=== PATIENT | male | born 1950 | race Caucasian/White ===

== ENCOUNTER 2018-05-30 15:30 | Inpatient (IN) | payer MEDICARE ==
[~2018-05-30] VITALS: Ht 175.3 cm; Wt 82.7 kg
[~2018-05-30 15:30] MED LIST: ATOR20TA38 PO; BRIV100T PO; CLOB10TA PO; CLOB20TA PO; DEXA2TAB PO; DOCU-216 PO; HYDR-4011 PO; IBUP200C11 PO; LACO200T2 PO; LORA1TAB PO; MEMA10TA PO; METO-335 PO; ONDA8TAB83 PO; POLY17PO6 PO; RANI150T5 PO; TEMO100C13 PO
[2018-05-30 16:58] VITALS: BP 106/71; PULSE 60; RESP 18
[2018-05-30] MEDS ORDERED: ACETAMINOPHEN 325 MG TAB PO PRN ×3 (18:27→19:56)
[2018-05-30] MEDS ORDERED: HYDROCODONE/APAP (5/325) TAB PO PRN ×3 (18:30→19:56)
[2018-05-30] MEDS ORDERED: POLYETHYLENE GLYCOL 17 GM PACKET PO PRN ×2 (18:30→19:56)
[2018-05-30] MEDS ORDERED: ZOLPIDEM 5 MG TAB PO PRN ×2 (18:30→19:56)
[2018-05-30] MEDS ORDERED: IBUPROFEN 200 MG TAB PO PRN ×2 (18:30→19:56)
[2018-05-30] MEDS ORDERED: LORAZEPAM 0.5 MG TAB PO PRN (18:30)
[2018-05-30 18:31] VITALS: Ht 175.3 cm; Wt 82.7 kg
[2018-05-30] MEDS ORDERED: MEMANTINE 10 MG TAB PO SCH (19:56)
[2018-05-30] MEDS ORDERED: DEXAMETHASONE 2 MG TAB PO SCH (19:56)
[2018-05-30] MEDS ORDERED: PENDING SANTYL ORDER FOR WOUND CARE XX PRN (19:56)
[2018-05-30] MEDS ORDERED: ASPIRIN 81 MG TAB PO SCH (19:56)
[2018-05-30] MEDS ORDERED: METOPROLOL (XL) 25 MG TAB PO SCH (19:56)
[2018-05-30] MEDS ORDERED: ATORVASTATIN 20 MG TAB PO SCH (19:56)
[2018-05-30] MEDS ORDERED: RANITIDINE 150 MG TAB PO SCH (19:56)
[2018-05-30] MEDS ORDERED: ONDANSETRON 4 MG INJ IV PRN (19:56)
[2018-05-30] MEDS ORDERED: DOCUSATE SODIUM 100 MG CAP PO SCH (19:56)
[2018-05-30] MEDS ORDERED: LORAZEPAM 2 MG INJ IV PRN (19:56)
[2018-05-30 20:00] VITALS: BP 101/67; PULSE 84; RESP 18
[2018-05-30] MEDS: MEMANTINE 10 MG TAB PO SCH (21:59)
[2018-05-30] MEDS: RANITIDINE 150 MG TAB PO SCH (22:00)
[2018-05-30] MEDS: DOCUSATE SODIUM 100 MG CAP PO SCH (22:00)
[2018-05-30] MEDS: ATORVASTATIN 20 MG TAB PO SCH (22:00)
[2018-05-30] MEDS: BRIVIACT 100 MG PO SCH (22:40)
[2018-05-30] MEDS: CLOBAZAM 20 MG PO SCH (22:41)
[2018-05-30] MEDS: LACOSAMIDE 200 MG PO SCH (22:41)
[2018-05-31 01:58] VITALS: BP 117/81; PULSE 70; RESP 18
--- NOTE | 2018-05-31 05:56 | NUR ---
REPORT RECEIVED FROM ALYX STEPHENSON. PATIENT IS ALERT AND ORIENTED X 2. SPEECH IS SLURRED. FACIAL DROOP, RT SIDED WEAKNESS. FALL. AND ASPIRATION, SEIZURE PRECAUTION. REFUSED PADDED RAILS. NO C/O PAIN OR DISCOMFORT. RECREATIONAL ACTIVITIES PROVIDED TO PATIENT; TV, CALL LIGHT WITHIN REACH Addendum: 05/31/18 at 1228 by ALYX DILLARD RN Per of pt, pt's own meds: Briviatt, Clobazam and Vimpat are deposited in Pharmacy.
[2018-05-31 07:30] VITALS: BP 112/75; PULSE 76; RESP 18
[2018-05-31] MEDS: DOCUSATE SODIUM 100 MG CAP PO SCH (09:00)
[2018-05-31] MEDS: METOPROLOL (XL) 25 MG TAB PO SCH (09:00)
[2018-05-31] MEDS: ASPIRIN 81 MG TAB PO SCH (10:06)
[2018-05-31] MEDS: MEMANTINE 10 MG TAB PO SCH ×2 (10:07→21:53)
[2018-05-31] MEDS: DEXAMETHASONE 2 MG TAB PO SCH (10:07)
[2018-05-31] MEDS: BRIVIACT 100 MG PO SCH ×2 (10:09→21:56)
[2018-05-31] MEDS: LACOSAMIDE 200 MG PO SCH ×2 (10:09→21:56)
[2018-05-31] MEDS: CLOBAZAM 10 MG PO SCH (10:10)
[2018-05-31 14:00] VITALS: BP 116/73; PULSE 77; RESP 18
--- NOTE | 2018-05-31 14:00 | CONS ---
DATE OF ADMISSION: 05/30/2018 DATE OF CONSULTATION: 05/31/2018 TYPE OF CONSULTATION: Rehabilitation post-admission physician evaluation. 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 ACTIVE COMORBIDITIES: 1. Dysphagia. 2. History of brain tumor with anaplastic astrocytoma. 3. Hypertension. 4. Hyperlipidemia. 5. Gastroesophageal reflux disease. 6. Seizure disorder. 7. PFO 8. Impairments in self-care, mobility and cognition. HISTORY OF PRESENT ILLNESS: The patient is a 67-year-old gentleman with a history of multiple medical comorbidities including brain tumor, seizure disorder, hypertension, who was admitted with notable right-sided weakness and altered level of consciousness. The patient apparently had been visiting his oncologist Dr. Deshawn Briseno and was receiving workup when noted to have worsening weakness and confusion. In presentation to the emergency room, code stroke was initiated and the patient scored a 2 on the NIH stroke scale. MRI of the brain did demonstrate left parietal cortical infarct in addition to chronic left basal ganglia infarct along with left-sided parietal lesion suggestive of metastatic disease and postsurgical changes. The patient's hospital course has been notable for seizure activity, new finding of small PFO. The patient has now been cleared to transfer to the rehabilitation unit for comprehensive interdisciplinary rehab care. FUNCTIONAL HISTORY: Prior to recent events, the patient was independent in self-care tasks and mobility. Currently, the patient requires maximal assist for self-care and mobility tasks. The patient does seem more impaired than the preadmission screen. FAMILY AND SOCIAL HISTORY: The patient lives with family very supportive who hopes to have him return home upon discharge. PAST MEDICAL HISTORY: 1. Brain tumor with anaplastic astrocytoma. 2. Hypertension. 3. Hyperlipidemia. 4. Gastroesophageal reflux disease. 5. Patent foramen ovale. 6. Seizure disorder. 7. Anxiety. CURRENT MEDICATIONS: 1. Aspirin 81 mg p.o. daily. 2. Decadron 2 mg p.o. daily. 3. Colace 100 mg p.o. q.12. 4. Ferriday p.r.n. 5. Namenda 10 mg b.i.d. 6. Toprol-XL 12.5 mg p.o. daily. 7. ____ 1 b.i.d. 8. Clobazam 1 p.o. q.a.m. 9. Vimpat 1 p.o. b.i.d. 10. [place] mays ALLERGIES: THE PATIENT WITH NO KNOWN DRUG ALLERGIES. PHYSICAL EXAMINATION: VITAL SIGNS: Currently afebrile with stable vital signs. GENERAL: The patient is quite somnolent, but will follow one-step commands with tactile initiation. LUNGS: Clear. CARDIAC: S1, S2. ABDOMEN: Soft, nontender, positive bowel sounds. NEUROLOGIC: The patient does demonstrate it technician strength in the left upper extremity and is able to demonstrate withdrawal response on the left lower extremity. The patient is with flaccid right upper extremity. PLAN: The patient has been admitted for comprehensive interdisciplinary acute rehab with the goal of having the patient tolerate 3 hours of daily therapy in divided doses for at least 5/7 days a week. The treatment plan will include: 1. Physical therapy to focus on bed mobility, transfers, wheelchair mobility and family training with the goal of having patient return home with family. 2. Occupational therapy to focus on hygiene, grooming, dressing, bathing and toileting activities with the goal of having the patient reach a min assist level and family safely trained in assistance. 3. Neuropsychological evaluation for full cognitive assessment and oversight of cognitive training and family education. 4. Speech therapy for full cognitive assessment. 5. Rehabilitation nursing for carryover of therapeutic interventions, the goal of continent of bowel and bladder and the patient and family education with regard to the aforementioned issues. REHABILITATION BARRIER: Cognition. INTERVENTION FOR BARRIER: Neuropsychological evaluation in addition to speech therapy. ESTIMATED LENGTH OF STAY: If patient is able to tolerate a full course of rehabilitation program, anticipated length of stay is 14 days. DISPOSITION GOAL: Home with family. I acknowledge that I performed a full physical examination on this patient within 24 hours of admission to the rehabilitation unit. I believe the patient is a candidate for rehabilitation trial and is anticipated to make reasonable goals in a reasonable period of time as outlined above. Dictated By: SIA SHARPE/FROY Conf#: [id number] DID#: [id number] CC: RAMA LONG MD;*EndCC* MTDD
--- NOTE | 2018-05-31 15:15 | NUR ---
PT ANSON Pt is a 67 y/o, male, with history of brain tumor w/ anaplastic astrocytoma, seizure disorder, hypertension, hyperlipidemia, GERD, anxiety, who was admitted with right-sided weakness and altered level of consciousness. Per , they were at [facility] for a check up when she noticed weakness and R facial drooping. Code stroke was initiated. MRI of the brain showed left parietal cortical infarct in addition to chronic left basal ganglia infarct along with left-sided parietal lesion suggestive of metastatic disease and postsurgical changes. Hospital course has been notable for seizure activity, new finding of small PFO. Pt and agreeable to PT eval, safe to proceed per RN. Pt and edu. on role of PT, POC, goals and safety. Good understanding noted from . Pt will benefit from further education. PLOF: Lives with in a 1-story house with ramp entry. Pt was able to ambulate on his own inside their home and was able to go up and down the ramp to get their mail w/o the use of any device. Pt owns a manual w/c, FWW, 4WW, trekking pole. CLOF: See PT tech record. Precautions: aphasic, speak slow and loud, fall risk, R-sided weakness, 2pA for gait, h/o seizure Short-term Goals: SBA bed mobility CGA with transfers Min A gait with least restrictive device x 75 ft SBA w/c mobility x 75 ft Long-term Goasl: Modified indep. bed mobility Supervised with transfers SBA gait with least restrictive device x 150 ft Modified indep. w/c mobility x 150 ft. Progress toward goals with POC.
--- NOTE | 2018-05-31 15:20 | HP ---
Date/Time of Note Date/Time of Note DATE: 05/31/18 TIME: 15:20 Assessment/Plan VTE Prophylaxis Risk score (from Ns)>0 risk: 5 SCD applied (from Ns): No SCD contraindicated: other Pharmacological prophylaxis: other Assessment/Plan Hospital Course Objective Physical exam General: Patient is laying in bed and answers questions appropriately Mentation: Patient is alert and oriented 4, Head: Normocephalic atraumatic Eyes: EOMI, pupils reactive to light Neck: Supple, nontender, midline Respiratory: Clear to auscultation bilaterally Cardiovascular: regular rate, no obvious murmurs Gastrointestinal: non-tender to palpation, bowel sounds heard. 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, chronic left basal ganglia lacunar infarct -Full workup done -In rehab -Residual right upper extremity and right facial droop is the main insult, will be working with physical therapy, occupational therapy, speech therapy Anaplastic astrocytoma -On chemotherapy -Follow-up at [facility] -Follow-up with neuro oncologist after rehab Hypertension -Manage as needed Seizures -Continue home meds Dyslipidemia -Continue meds History of dementia -Continue home meds GERD -Continue home meds New finding of small PFO on LAKSHMI -Need surgical repair, family and knows to follow-up at [facility] after discharge. Result Diagram: 05/31/18 0702 05/31/18 0702 Results 24hrs Laboratory Tests Test 05/30/18 20:30 05/31/18 07:02 Urine Color YELLOW Urine Clarity CLEAR Urine pH 7.0 Urine Specific [place] 1.010 Urine Ketones NEGATIVE Urine Nitrite NEGATIVE Urine Bilirubin NEGATIVE Urine Urobilinogen NEGATIVE Urine Leukocyte Esterase NEGATIVE Urine Microscopic RBC 15 H Urine Microscopic WBC 1 Urine Hemoglobin 1+ H Urine Glucose NEGATIVE Urine Total Protein NEGATIVE White Blood Count 5.6 Red Blood Count 4.84 Hemoglobin 15.7 Hematocrit 43.7 Mean Corpuscular Volume 90.3 Mean Corpuscular Hemoglobin 32.4 Mean Corpuscular Hemoglobin Concent 35.9 Red Cell Distribution Width 13.4 Platelet Count 141 Mean Platelet Volume 8.6 Immature Granulocytes % 1.800 H Neutrophils % 68.5 Lymphocytes % 10.9 L Monocytes % 11.2 H Eosinophils % 6.4 Basophils % 1.2 Nucleated Red Blood Cells % 0.0 Immature Granulocytes # 0.100 H Neutrophils # 3.9 Lymphocytes # 0.6 L Monocytes # 0.6 Eosinophils # 0.4 Basophils # 0.1 Nucleated Red Blood Cells # 0.0 Sodium Level 143 Potassium Level 3.7 Chloride Level 104 Carbon Dioxide Level 30 Anion Gap 9 Blood Urea Nitrogen 16 Creatinine 0.73 Est Glomerular Filtrat Rate mL/min > 60 Glucose Level 96 Calcium Level 9.2 Total Bilirubin 0.9 Direct Bilirubin 0.00 Indirect Bilirubin 0.9 Aspartate Amino Transf (AST/SGOT) 15 Alanine Aminotransferase (ALT/SGPT) 32 Alkaline Phosphatase 55 Total Protein 6.0 L Albumin 3.4 Globulin 2.60 Albumin/Globulin Ratio 1.30 HPI/ROS Admit Date/Time Admit Date/Time May 30, 2018 at 16:24 Hx of Present Illness Patient is a male with a past medical history significant for known b rain tumor on chemotherapy, hypertension, seizures due to brain tumor, dyslipidemia, mild dementia, GERD who presented to [facility] for strokelike symptoms. Patient was diagnosed with acute CVA and subsequently had a complete stroke workup in the inpatient setting. Patient was deemed safe for discharge and subsequently is now being admitted into the acute rehab unit. Patient overall is doing well, still having right cheek numbness as well as right facial droop and moderate right upper extremity dysfunction. Patient does have some right lower extremity dysfunction however it is not significantly different from his baseline per patient. Patient is doing well and denies any current abdominal pain, chest pain, shortness of breath, headache, leg pain. PMH/Family/Social Past Medical History Medications Current Medications Acetaminophen (Tylenol Tab) 650 mg Q6H PRN PO MILD PAIN(1-3)OR ELEVATED TEMP; Start 05/30/18 at 18:30 Aspirin (Aspirin) 81 mg DAILY PO Last administered on 05/31/18at 10:06; Admin Dose 81 MG; Start 05/31/18 at 09:00 Atorvastatin Calcium (Lipitor) 20 mg HS PO Last administered on 05/30/18at 22:00; Admin Dose 20 MG; Start 05/30/18 at 21:00 Dexamethasone (Decadron) 2 mg DAILY PO Last administered on 05/31/18at 10:07; Admin Dose 2 MG; Start 05/31/18 at 09:00 Acetaminophen/ Hydrocodone Bitart ([place] (5/325)) 1 tab Q6H PRN PO MODERATE PAIN LEVEL 4-6; Start 05/30/18 at 18:30 Ibuprofen (Motrin) 200 mg Q6H PRN PO MILD PAIN(1-3) OR TEMP>38C; Start 05/30/18 at 18:30 Lorazepam (Ativan) 0.5 mg QID PRN PO ANXIETY; Start 05/30/18 at 18:30 Memantine (Namenda) 10 mg BID PO Last administered on 05/31/18at 10:07; Admin Dose 10 MG; Start 05/30/18 at 21:00 Metoprolol Succinate (Toprol Xl) 12.5 mg DAILY PO ; Start 05/31/18 at 09:00 Miscellaneous Information (* Miscellaneous Pharmacy Order) 1 ea BID PO ; Start 05/30/18 at 21:00 Miscellaneous Information (* Miscellaneous Pharmacy Order) 1 ea DAILY PO ; Start 05/31/18 at 09:00 Miscellaneous Information (* Miscellaneous Pharmacy Order) 1 ea HS PO ; Start 05/30/18 at 21:00 Miscellaneous Information (* Miscellaneous Pharmacy Order) 1 ea BID PO ; Start 05/30/18 at 21:00 Polyethylene Glycol (Miralax) 17 gm DAILY PRN PO CONSTIPATION; Start 05/30/18 at 18:30 Ranitidine HCl (Zantac) 150 mg HS PO Last administered on 05/30/18at 22:00; Admin Dose 150 MG; Start 05/30/18 at 21:00 Zolpidem Tartrate (Ambien) 5 mg HS PRN PO INSOMNIA; Start 05/30/18 at 18:30 Patient Own Medication 1 ea BID PO Last administered on 05/31/18at 10:09; Admin Dose 1 EA; Start 05/30/18 at 19:56 Patient Own Medication 1 ea QAM PO Last administered on 05/31/18at 10:10; Admin Dose 1 EA; Start 05/30/18 at 19:56 Patient Own Medication 1 ea QPM PO Last administered on 05/30/18at 22:41; Admin Dose 1 EA; Start 05/30/18 at 19:56 Patient Own Medication 1 ea BID PO Last administered on 05/31/18at 10:09; Admin Dose 1 EA; Start 05/30/18 at 19:56 Ondansetron HCl (Zofran Inj) 4 mg Q6H PRN IV NAUSEA AND/OR VOMITING; Start 05/30/18 at 19:56 Miscellaneous Information (Pending Santyl Order For Wound Care) This patient ly... PRN PRN XX wound care; Start 05/30/18 at 19:56 Docusate Sodium (Colace Liquid Cup) 100 mg BID PO ; Start 05/31/18 at 21:00 Coded Allergies: No Known Allergy (Unverified , 05/25/18) Social History Smoking Status: Heavy tobacco smoker Exam/Review of Systems Vital Signs Vitals Vital Signs Date Temp Pulse Resp B/P (MAP) Pulse Ox O2 O2 Flow FiO2 Time Delivery Rate 05/31/18 97.6 77 18 116/73 93 Room Air 14:00 (87) Intake and Output 05/30/18 05/30/18 05/31/18 1515:00 23:00 07:00 IntakeIntake Total 220 ml OutputOutput Total 600 ml BalanceBalance -380 ml JESUS DAVIS May 31, 2018 15:20
--- NOTE | 2018-05-31 17:00 | NUR ---
Patient in bed eating dinner assisted by his . Offered TV & educational materials for recreational activities. Alert, oriented x 1 with periods of confusion. No SOB. Denies pain. No seizure episode noted. Patient & refused padded siderails. Offered 3x but refused 3x. Explained risks & benefits but they still refused. Kept clean & dry. All due meds given. Call light within reach. Bed alarm on & in low position. Kept comfortable.
--- NOTE | 2018-05-31 18:38 | CONS ---
DATE OF ADMISSION: 05/30/2018 DATE OF CONSULTATION: 05/31/2018 TYPE OF CONSULTATION: Psychological. REFERRING PHYSICIAN: Sia Carr MD CONSULTING PSYCHOLOGIST: Dashawn Thompson, PhD REASON FOR CONSULTATION: This consultation was requested by Dr. Carlin Carr in order to evaluate t he cognitive and emotional functioning of this patient related to his present medical condition. HISTORY OF PRESENT ILLNESS: The patient is a 67-year-old male. The patient has had numerous recent medical problems including what appeared to be 2 recent strokes. The patient also had been treated f or brain cancer for the last 2 years at [facility]. The patient reportedly has an a naplastic astrocytoma on the left side. The patient was brought into the emergency room. Eventually , he was then worked up and cleared. The patient was then sent to the acute rehabilitation unit for acute multidisciplinary rehabilitation. The patient is very frustrated. 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 The patient's was present with the patient's permission and did help the patient with some of the responses. The patient does under stand the questions, but did have an expressive aphasia. The reported that he has both expressi ve and receptive aphasia after his strokes. Recently, he has been getting better until this most rec ent event. FAMILY AND SOCIAL HISTORY: The patient lives in a home with his in [place], [place]. The patient eventually wants to return there after discharge. The patient's family lives up there. MEDICATIONS: The patient is currently not on any psychotropic medications. SUBSTANCE USE: The patient reports that he does not smoke. The patient reports that he does not dri nk or use other drugs. MENTAL STATUS EXAMINATION: APPEARANCE: The patient was seen in bed. He appears to be of average height and weight. The patien t is left-handed. The patient wears glasses. BEHAVIOR: The patient was cooperative during the consultation. The patient was very frustrated that he could not come up with some of the answers that he would like to. The patient did seem to unders tand the questions and was trying to answer them. MOOD AND AFFECT: The patient's mood appears to be depressed. Affect does appear to be slightly anxi ous. PERCEPTION: The patient reports no hallucinations or delusions. The patient was alert to person and place, but not exactly to situation and time. MEMORY AND COGNITION: The patient's memory and cognition appear to be impaired at the present time. It appears that this is related to his recent stroke. The patient could not name the hospital. The patient could not say who the President of [facility] is, even though he kind of knew it. The pa yris could not say the month or the year. The patient was able to say the city he lived in when pro mpted by his . Overall, it appears that the patient to be having a vascular dementia regarding h is recent stroke. INTELLIGENCE: Intelligence would appear to fall in the above average to superior range when he was f unctioning well. INSIGHT: Fair. JUDGMENT: Fair. THOUGHT CONTENT: The patient is very upset and concerned about his present medical condition. The p atient has numerous medical problems and before this has been very positive and "upbeat" about his pr ogress. The patient is now frustrated because a good number of the things that he has done to help h im rest has now deteriorated as a result of his recent stroke. DISCUSSION: The patient can likely benefit from some cognitive/behavioral psychotherapy while he is on the unit. This psychotherapy would focus on his underlying level of frustration about all his med ical problems. The patient could also benefit from some cognitive work that would be involved in try ing to get his memory and cognition back to a level that is commensurate with his previous abilities. The patient's was given a memory book to help him work with memories so that he could try and regain some cognitive functioning. DIAGNOSTIC IMPRESSION: 1. 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 2. F01.50, vascular dementia without behavioral disturbance. Thank you very much, Dr. Carlin Carr, for referring this individual. Please do not hesitate to radha crook if you have additional questions. Dictated By: DAHSAWN THOMPSON PHD RK/FROY Conf#: [id number] DID#: [id number] CC: SIA CARR MD; RAMA LONG MD;*EndCC*
[2018-05-31 19:19] VITALS: BP 105/71; PULSE 82; RESP 18
--- NOTE | 2018-05-31 20:13 | NUR ---
Called and spoke with [facility] pharmacist to send pt's own medications which is due at 2100 hours.
[2018-05-31] MEDS: ATORVASTATIN 20 MG TAB PO SCH (21:53)
[2018-05-31] MEDS: DOCUSATE SODIUM 10 MG/ML (10ML CUP) PO SCH (21:53)
[2018-05-31] MEDS: RANITIDINE 150 MG TAB PO SCH (21:53)
[2018-05-31] MEDS: CLOBAZAM 20 MG PO SCH (21:54)
[2018-06-01 02:00] VITALS: BP 116/77; RESP 18
[2018-06-01 07:00] VITALS: BP 107/71; PULSE 86; RESP 18
--- NOTE | 2018-06-01 08:03 | NUR ---
Pt is Alert and awake x 1 for name only, slept on and off during night hours, no other complaints noted. Vital signs stable. Right sided weakness. Slurred speech. Incontinent for bladder and bowel, cleaned and changed by staff last night. Pt kept on fall, seizure and aspiration precaution. Medication crushed and given with apple sauce. HOB elevated 90 degree while eating, drinking and giving medication. HOB elevated >30 degree all the times. Pt refused seizure pads. Bed alarm activated for safety, call light and bedside table within reach.
--- NOTE | 2018-06-01 10:34 | NUR ---
Wound Care Consult: Patient is a male with a past medical history significant for known brain tumor on chemotherapy, hypertension, seizures due to brain tumor, dyslipidemia, mild dementia, GERD who presented to [facility] for strokelike symptoms. Patient was diagnosed with acute CVA and subsequently had a complete stroke workup in the inpatient setting. Patient was deemed safe for discharge and subsequently is now being admitted into the acute rehab unit. Wound care consulted for wounds present on admission Multiple skin tears from right arm secondary to chemo medication use and aggravated by frequent falls. Treatment recommendation include, cleanse area with normal saline, pat dry, apply skin barrier dressing (non-stick Telfa) and cover with kerlix roll secured with tape daily and as needed. May change every 2-3 days as needed. Reposition patient every 2 hours per department protocol Elevate heels with pillows to off-load WOCN coordinated with Dacia, unit RN regarding assessment and treatment recommended. Juanjose Reyes RN MSN WOCN CM
[2018-06-01] MEDS: LACOSAMIDE 200 MG PO SCH ×2 (10:36→21:57)
[2018-06-01] MEDS: CLOBAZAM 10 MG PO SCH (10:36)
[2018-06-01] MEDS: BRIVIACT 100 MG PO SCH ×2 (10:37→21:58)
[2018-06-01] MEDS: ASPIRIN 81 MG TAB PO SCH (10:37)
[2018-06-01] MEDS: DOCUSATE SODIUM 10 MG/ML (10ML CUP) PO SCH ×2 (10:37→21:57)
[2018-06-01] MEDS: MEMANTINE 10 MG TAB PO SCH ×2 (10:37→21:57)
[2018-06-01] MEDS: METOPROLOL (XL) 25 MG TAB PO SCH (11:06)
--- NOTE | 2018-06-01 12:17 | PN ---
Date/Time of Note Date/Time of Note DATE: 06/01/18 TIME: 12:16 Subjective Much more alert today Objective Vital Signs Date Temp Pulse Resp B/P (MAP) Pulse Ox O2 O2 Flow FiO2 Time Delivery Rate 06/01/18 97.8 86 18 107/71 94 Room Air 07:00 (83) Intake and Output 05/31/18 05/31/18 06/01/18 1515:00 23:00 07:00 IntakeIntake Total 980 ml 150 ml OutputOutput Total 720 ml BalanceBalance 260 ml 150 ml Exam pulm-cta abd-soft max assist Results/Medications Result Diagram: 05/31/18 0702 05/31/18 0702 Medications Current Medications Acetaminophen (Tylenol Tab) 650 mg Q6H PRN PO MILD PAIN(1-3)OR ELEVATED TEMP; Start 05/30/18 at 18:30 Aspirin (Aspirin) 81 mg DAILY PO Last administered on 06/01/18at 10:37; Admin Dose 81 MG; Start 05/31/18 at 09:00 Atorvastatin Calcium (Lipitor) 20 mg HS PO Last administered on 05/31/18at 21:53; Admin Dose 20 MG; Start 05/30/18 at 21:00 Dexamethasone (Decadron) 2 mg DAILY PO Last administered on 05/31/18at 10:07; Admin Dose 2 MG; Start 05/31/18 at 09:00 Acetaminophen/ Hydrocodone Bitart ([place] (5/325)) 1 tab Q6H PRN PO MODERATE PAIN LEVEL 4-6; Start 05/30/18 at 18:30 Ibuprofen (Motrin) 200 mg Q6H PRN PO MILD PAIN(1-3) OR TEMP>38C; Start 05/30/18 at 18:30 Lorazepam (Ativan) 0.5 mg QID PRN PO ANXIETY; Start 05/30/18 at 18:30 Memantine (Namenda) 10 mg BID PO Last administered on 06/01/18at 10:37; Admin Dose 10 MG; Start 05/30/18 at 21:00 Metoprolol Succinate (Toprol Xl) 12.5 mg DAILY PO Last administered on 06/01/18at 11:06; Admin Dose 12.5 MG; Start 05/31/18 at 09:00 Miscellaneous Information (* Miscellaneous Pharmacy Order) 1 ea BID PO ; Start 05/30/18 at 21:00 Miscellaneous Information (* Miscellaneous Pharmacy Order) 1 ea DAILY PO ; S tart 05/31/18 at 09:00 Miscellaneous Information (* Miscellaneous Pharmacy Order) 1 ea HS PO ; Start 05/30/18 at 21:00 Miscellaneous Information (* Miscellaneous Pharmacy Order) 1 ea BID PO ; Start 05/30/18 at 21:00 Polyethylene Glycol (Miralax) 17 gm DAILY PRN PO CONSTIPATION Last administered on 05/31/18at 18:33; Admin Dose 17 GM; Start 05/30/18 at 18:30 Ranitidine HCl (Zantac) 150 mg HS PO Last administered on 05/31/18at 21:53; Admin Dose 150 MG; Start 05/30/18 at 21:00 Zolpidem Tartrate (Ambien) 5 mg HS PRN PO INSOMNIA; Start 05/30/18 at 18:30 Patient Own Medication 1 ea BID PO Last administered on 06/01/18at 10:37; Admin Dose 1 EA; Start 05/30/18 at 19:56 Patient Own Medication 1 ea QAM PO Last administered on 06/01/18at 10:36; Admin Dose 1 EA; Start 05/30/18 at 19:56 Patient Own Medication 1 ea QPM PO Last administered on 05/31/18at 21:54; Admin Dose 1 EA; Start 05/30/18 at 19:56 Patient Own Medication 1 ea BID PO Last administered on 06/01/18at 10:36; Admin Dose 1 EA; Start 05/30/18 at 19:56 Ondansetron HCl (Zofran Inj) 4 mg Q6H PRN IV NAUSEA AND/OR VOMITING; Start 05/30/18 at 19:56 Miscellaneous Information (Pending Santyl Order For Wound Care) This patient ly... 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 Continue rehab program Dysphagia-continue speech Hypertension. Hyperlipidemia. Gastroesophageal reflux disease. Seizure disorder. SIA SANTOS MD Jun 01, 2018 12:17
[2018-06-01 14:00] VITALS: BP 115/36; PULSE 70; RESP 18
--- NOTE | 2018-06-01 15:23 | PN ---
Date/Time of Note Date/Time of Note DATE: 06/01/18 TIME: 15:22 Objective Vitals Vital Signs Date Temp Pulse Resp B/P (MAP) Pulse Ox O2 O2 Flow FiO2 Time Delivery Rate 06/01/18 97.8 86 18 107/71 94 Room Air 07:00 (83) Intake and Output 05/31/18 05/31/18 06/01/18 1515:00 23:00 07:00 IntakeIntake Total 980 ml 150 ml OutputOutput Total 720 ml BalanceBalance 260 ml 150 ml Results Result Diagram: 05/31/1802 05/31/18 07 Medications Medications Current Medications Acetaminophen (Tylenol Tab) 650 mg Q6H PRN PO MILD PAIN(1-3)OR ELEVATED TEMP; Start 05/30/18 at 18:30 Aspirin (Aspirin) 81 mg DAILY PO Last administered on 06/01/18at 10:37; Admin Dose 81 MG; Start 05/31/18 at 09:00 Atorvastatin Calcium (Lipitor) 20 mg HS PO Last administered on 05/31/18at 21:53; Admin Dose 20 MG; Start 05/30/18 at 21:00 Dexamethasone (Decadron) 2 mg DAILY PO Last administered on 05/31/18at 10:07; Admin Dose 2 MG; Start 05/31/18 at 09:00 Acetaminophen/ Hydrocodone Bitart ([place] (5/325)) 1 tab Q6H PRN PO MODERATE PA IN LEVEL 4-6; Start 05/30/18 at 18:30 Ibuprofen (Motrin) 200 mg Q6H PRN PO MILD PAIN(1-3) OR TEMP>38C; Start 05/30/18 at 18:30 Lorazepam (Ativan) 0.5 mg QID PRN PO ANXIETY; Start 05/30/18 at 18:30 Memantine (Namenda) 10 mg BID PO Last administered on 06/01/18at 10:37; Admin Dose 10 MG; Start 05/30/18 at 21:00 Metoprolol Succinate (Toprol Xl) 12.5 mg DAILY PO Last administered on 06/01/18at 11:06; Admin Dose 12.5 MG; Start 05/31/18 at 09:00 Miscellaneous Information (* Miscellaneous Pharmacy Order) 1 ea BID PO ; Start 05/30/18 at 21:00 Miscellaneous Information (* Miscellaneous Pharmacy Order) 1 ea DAILY PO ; Start 05/31/18 at 09:00 Miscellaneous Information (* Miscellaneous Pharmacy Order) 1 ea HS PO ; Start 05/30/18 at 21:00 Miscellaneous Information (* Miscellaneous Pharmacy Order) 1 ea BID PO ; Start 05/30/18 at 21:00 Polyethylene Glycol (Miralax) 17 gm DAILY PRN PO CONSTIPATION Last administered on 05/31/18at 18:33; Admin Dose 17 GM; Start 05/30/18 at 18:30 Ranitidine HCl (Zantac) 150 mg HS PO Last administered on 05/31/18at 21:53; Admin Dose 150 MG; Start 05/30/18 at 21:00 Zolpidem Tartrate (Ambien) 5 mg HS PRN PO INSOMNIA; Start 05/30/18 at 18:30 Patient Own Medication 1 ea BID PO Last administered on 06/01/18at 10:37; Admin Dose 1 EA; Start 05/30/18 at 19:56 Patient Own Medication 1 ea QAM PO Last administered on 06/01/18at 10:36; Admin Dose 1 EA; Start 05/30/18 at 19:56 Patient Own Medication 1 ea QPM PO Last administered on 05/31/18at 21:54; Admin Dose 1 EA; Start 05/30/18 at 19:56 Patient Own Medication 1 ea BID PO Last administered on 06/01/18at 10:36; Admin Dose 1 EA; Start 05/30/18 at 19:56 Ondansetron HCl (Zofran Inj) 4 mg Q6H PRN IV NAUSEA AND/OR VOMITING; Start 05/30/18 at 19:56 Miscellaneous Information (Pending Santyl Order For Wound Care) This patient ly... PRN PRN XX wound care; Start 05/30/18 at 19:56 Docusate Sodium (Colace Liquid Cup) 100 mg BID PO Last administered on 06/01/18at 10:37; Admin Dose 100 MG; Start 05/31/18 at 21:00 VTE Prophylaxis Risk score (from Nsg)>0 risk: 5 SCD applied (from Nsg): Yes Lines/Catheters IV Catheter Type: Vidales in Place: No Assessment/Plan Hospital Course subjective no acute issues overnight Objective Physical exam General: Patient is laying in bed and answers questions appropriately Mentation: Patient is alert and oriented 4, Head: Normocephalic atraumatic Eyes: EOMI, pupils reactive to light Neck: Supple, nontender, midline Respiratory: Clear to auscultation bilaterally Cardiovascular: regular rate, no obvious murmurs Gastrointestinal: non-tender to palpation, bowel sounds heard. 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 after discharge. JESUS DAVIS Jun 01, 2018 15:23
[2018-06-01] MEDS: DEXAMETHASONE 2 MG TAB PO SCH (16:43)
--- NOTE | 2018-06-01 16:48 | CONS ---
Assessment/Plan Assessment/Plan Hospital Course 67 yo M with Hx of brain tumor NOS, s/p radiation therapy and c/b epilepsy who presents to [facility] for acute rehab... following a recent hospitalization for acute limb weakness. MRI confirmed an enhancing and diffusion restricting lesion in the R parietal lobe, concerning for stroke vs. tumor recurrence.. MRA H/N was without evidence of multifocal stenoses.. Echos were unrevealing. P: Cont ASA/Lipitor daily for secondary stroke prevention PT/OT/ST per thread marker Recommend repeat MRI brain in ~1 mo for further characterization Will follow clinically. Result Diagram: 05/31/18 0702 05/31/18 0702 Consultation Date/Type/Reason Admit Date/Time May 30, 2018 at 16:24 Type of Consult Neurology Requesting Provider: RAMA LONG MD, [facility] Date/Time of Note DATE: 06/01/18 TIME: 16:48 24 HR Interval Summary Free Text/Dictation Continues [facility]. No acute events or changes in pt condition reported. Exam Vital Signs Vitals Vital Signs Date Temp Pulse Resp B/P (MAP) Pulse Ox O2 O2 Flow FiO2 Time Delivery Rate 06/01/18 97.4 70 18 115/36 92 Room Air 14:00 (62) Intake and Output 05/31/18 05/31/18 06/01/18 1515:00 23:00 07:00 IntakeIntake Total 980 ml 150 ml OutputOutput Total 720 ml BalanceBalance 260 ml 150 ml Exam PE: Gen Appearance: No Apparent Distress HEENT: Normocephalic Cardiovascular: Regular rate Lungs: Clear bilaterally Abdomen: Soft Extremities: Dry NE: The patient was asleep though arousable to voice/light touch. Speech was sl ightly dysarthric and dysphasic. Fund of knowledge was adequate. Did not want to fully participate today. Pupils were equal and reactive to light. There was no afferent pupillary defect. Visual brock were normal. Funduscopic examination was limited. Extra-ocular movements were full. Ptosis was absent. There was no nystagmus. Facial sensation was diminished on the R. Face was asymmetric on the R with diminished activation on the R. Hearing was intact. Palate movements were normal. Neck strength was normal. There was normal tongue bulk and speed of movement. Tone was normal. Muscle bulk was normal. I did not see fasciculations. L arm was strong to confrontation, R arm was antigravity. LLE was strong to confrontation and RLE was mildly weak. Vibration sensation and sensation to light touch was diminished on the R vs L. Temperature and pinprick sensation was normal. Rapid alternating movements were normal. There was no dysmetria. There was no intention tremor. Gait was deferred due to bedrest. Arm and leg reflexes were 2+ and symmetric. Cerda's sign was absent. Plantar responses were flexor. LAUREN YOUNG NP Jun 01, 2018 16:48 LEONEL ANDERSON Jun 02, 2018 06:14
[2018-06-01 19:26] VITALS: BP 90/57; PULSE 72; RESP 18
[2018-06-01] MEDS: RANITIDINE 150 MG TAB PO SCH (21:57)
[2018-06-01] MEDS: ATORVASTATIN 20 MG TAB PO SCH (21:57)
[2018-06-01] MEDS: CLOBAZAM 20 MG PO SCH (21:58)
--- NOTE | 2018-06-02 05:25 | NUR ---
Pt stable with no acute distress noted. Due medications given and all needs attended. No ocmplaints of any pain/discomfort. Pt on strict aspiration precaution, meds was crushed and given with apple sauce. Pt continent vs incontinent, no BM noted. Safety measures in place. Hourly rounding made. Bed alarm activated for safety. bed side rails up and call light within pt's reach.
[2018-06-02 07:00] VITALS: BP 108/72; PULSE 74; RESP 16
[2018-06-02] MEDS: METOPROLOL (XL) 25 MG TAB PO SCH (09:00)
[2018-06-02] MEDS ORDERED: BISACODYL 10 MG SUPP PR PRN (10:00)
[2018-06-02] MEDS ORDERED: LACTULOSE 30ML CUP PO PRN (10:00)
[2018-06-02] MEDS: POLYETHYLENE GLYCOL 17 GM PACKET PO SCH (10:06)
[2018-06-02] MEDS: CLOBAZAM 10 MG PO SCH (10:07)
[2018-06-02] MEDS: LACOSAMIDE 200 MG PO SCH ×2 (10:07→22:02)
[2018-06-02] MEDS: MEMANTINE 10 MG TAB PO SCH ×2 (10:07→22:01)
[2018-06-02] MEDS: BRIVIACT 100 MG PO SCH ×2 (10:07→22:01)
[2018-06-02] MEDS: DEXAMETHASONE 2 MG TAB PO SCH (10:08)
[2018-06-02] MEDS: ASPIRIN 81 MG TAB PO SCH (10:09)
[2018-06-02] MEDS: DOCUSATE SODIUM 10 MG/ML (10ML CUP) PO SCH ×2 (10:09→22:01)
--- NOTE | 2018-06-02 12:39 | PN ---
Date/Time of Note Date/Time of Note DATE: 06/02/18 TIME: 12:38 Subjective Much better today Objective Vital Signs Date Temp Pulse Resp B/P (MAP) Pulse Ox O2 O2 Flow FiO2 Time Delivery Rate 06/02/18 98.2 74 16 108/72 93 Room Air 07:00 (84) Intake and Output 06/01/18 06/01/18 06/02/18 1414:59 22:59 06:59 IntakeIntake Total 800 ml 1200 ml OutputOutput Total 750 ml 800 ml 250 ml BalanceBalance 50 ml 400 ml -250 ml Exam pulm-cta bd-soft mod ambulation Results/Medications Result Diagram: 05/31/18 0702 05/31/18 0702 Medications Current Medications Acetaminophen (Tylenol Tab) 650 mg Q6H PRN PO MILD PAIN(1-3)OR ELEVATED TEMP; Start 05/30/18 at 18:30 Aspirin (Aspirin) 81 mg DAILY PO Last administered on 06/02/18at 10:09; Admin Dose 81 MG; Start 05/31/18 at 09:00 Atorvastatin Calcium (Lipitor) 20 mg HS PO Last administered on 06/01/18at 21:57; Admin Dose 20 MG; Start 05/30/18 at 21:00 Dexamethasone (Decadron) 2 mg DAILY PO Last administered on 06/02/18at 10:08; Admin Dose 2 MG; Start 05/31/18 at 09:00 Acetaminophen/ Hydrocodone Bitart ([place] (5/325)) 1 tab Q6H PRN PO MODERATE PAIN LEVEL 4-6; Start 05/30/18 at 18:30 Ibuprofen (Motrin) 200 mg Q6H PRN PO MILD PAIN(1-3) OR TEMP>38C; Start 05/30/18 at 18:30 Lorazepam (Ativan) 0.5 mg QID PRN PO ANXIETY; Start 05/30/18 at 18:30 Memantine (Namenda) 10 mg BID PO Last administered on 06/02/18at 10:07; Admin Dose 10 MG; Start 05/30/18 at 21:00 Metoprolol Succinate (Toprol Xl) 12.5 mg DAILY PO Last administered on 06/01/18at 11:06; Admin Dose 12.5 MG; Start 05/31/18 at 09:00 Miscellaneous Information (* Miscellaneous Pharmacy Order) 1 ea BID PO ; Start 05/30/18 at 21:00 Miscellaneous Information (* Miscellaneous Pharmacy Order) 1 ea DAILY PO ; Start 05/31/18 at 09:00 Miscellaneous Information (* Miscellaneous Pharmacy Order) 1 ea HS PO ; Start 05/30/18 at 21:00 Miscellaneous Information (* Miscellaneous Pharmacy Order) 1 ea BID PO ; Start 05/30/18 at 21:00 Ranitidine HCl (Zantac) 150 mg HS PO Last administered on 06/01/18at 21:57; Admin Dose 150 MG; Start 05/30/18 at 21:00 Zolpidem Tartrate (Ambien) 5 mg HS PRN PO INSOMNIA; Start 05/30/18 at 18:30 Patient Own Medication 1 ea BID PO Last administered on 06/02/18at 10:07; Admin Dose 1 EA; Start 05/30/18 at 19:56 Patient Own Medication 1 ea QAM PO Last administered on 06/02/18at 10:07; Admin Dose 1 EA; Start 05/30/18 at 19:56 Patient Own Medication 1 ea QPM PO Last administered on 06/01/18at 21:58; Admin Dose 1 EA; Start 05/30/18 at 19:56 Patient Own Medication 1 ea BID PO Last administered on 06/02/18at 10:07; Admin Dose 1 EA; Start 05/30/18 at 19:56 Ondansetron HCl (Zofran Inj) 4 mg Q6H PRN IV NAUSEA AND/OR VOMITING; Start 05/30/18 at 19:56 Miscellaneous Information (Pending Santyl Order For Wound Care) This patient ly... PRN PRN XX wound care; Start 05/30/18 at 19:56 Docusate Sodium (Colace Liquid Cup) 100 mg BID PO Last administered on 06/02/18at 10:09; Admin Dose 100 MG; Start 05/31/18 at 21:00 Polyethylene Glycol (Miralax) 17 gm DAILY PO Last administered on 06/02/18at 10:06; Admin Dose 17 GM; Start 06/03/18 at 09:00 Lactulose (Enulose) 20 gm DAILY PRN PO CONSTIPATION; Start 06/02/18 at 10:00 Senna (Senokot) 1 tab DAILY PO ; Start 06/03/18 at 09:00 Bisacodyl (Dulcolax Supp) 10 mg DAILY PRN [place] CONSTIPATION; Start 06/02/18 at 10:00 Assessment/Plan Additional Assessment/Plan Rehab- 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 Continue rehab treatment plan. Progressing well. Met with who is pleased with his progress Dysphagia-continue speech Hypertension. Hyperlipidemia. Gastroesophageal reflux disease. Seizure disorder. SIA SANTOS MD Jun 02, 2018 12:39
[2018-06-02 14:16] VITALS: BP 95/65; PULSE 77; RESP 18
--- NOTE | 2018-06-02 14:43 | PN ---
Date/Time of Note Date/Time of Note DATE: 06/02/18 TIME: 14:38 Objective Vitals Vital Signs Date Temp Pulse Resp B/P (MAP) Pulse Ox O2 O2 Flow FiO2 Time Delivery Rate 06/02/18 97.2 77 18 95/65 (75) 96 Room Air 14:16 Intake and Output 06/01/18 06/01/18 06/02/18 1515:00 23:00 07:00 IntakeIntake Total 800 ml 1200 ml OutputOutput Total 750 ml 800 ml 250 ml BalanceBalance 50 ml 400 ml -250 ml Results Result Diagram: 05/31/1870105/31/18701 Medications Medications Current Medications Acetaminophen (Tylenol Tab) 650 mg Q6H PRN PO MILD PAIN(1-3)OR ELEVATED TEMP; Start 05/30/18 at 18:30 Aspirin (Aspirin) 81 mg DAILY PO Last administered on 06/02/18at 10:09; Admin Dose 81 MG; Start 05/31/18 at 09:00 Atorvastatin Calcium (Lipitor) 20 mg HS PO Last administered on 06/01/18at 21:57; Admin Dose 20 MG; Start 05/30/18 at 21:00 Dexamethasone (Decadron) 2 mg DAILY PO Last administered on 06/02/18at 10:08; Ad min Dose 2 MG; Start 05/31/18 at 09:00 Acetaminophen/ Hydrocodone Bitart ([place] (5/325)) 1 tab Q6H PRN PO MODERATE PAIN LEVEL 4-6; Start 05/30/18 at 18:30 Ibuprofen (Motrin) 200 mg Q6H PRN PO MILD PAIN(1-3) OR TEMP>38C; Start 05/30/18 at 18:30 Lorazepam (Ativan) 0.5 mg QID PRN PO ANXIETY; Start 05/30/18 at 18:30 Memantine (Namenda) 10 mg BID PO Last administered on 06/02/18at 10:07; Admin Dose 10 MG; Start 05/30/18 at 21:00 Metoprolol Succinate (Toprol Xl) 12.5 mg DAILY PO Last administered on 06/01/18at 11:06; Admin Dose 12.5 MG; Start 05/31/18 at 09:00 Miscellaneous Information (* Miscellaneous Pharmacy Order) 1 ea BID PO ; Start 05/30/18 at 21:00 Miscellaneous Information (* Miscellaneous Pharmacy Order) 1 ea DAILY PO ; Start 05/31/18 at 09:00 Miscellaneous Information (* Miscellaneous Pharmacy Order) 1 ea HS PO ; Start 05/30/18 at 21:00 Miscellaneous Information (* Miscellaneous Pharmacy Order) 1 ea BID PO ; Start 05/30/18 at 21:00 Ranitidine HCl (Zantac) 150 mg HS PO Last administered on 06/01/18at 21:57; Admin Dose 150 MG; Start 05/30/18 at 21:00 Zolpidem Tartrate (Ambien) 5 mg HS PRN PO INSOMNIA; Start 05/30/18 at 18:30 Patient Own Medication 1 ea BID PO Last administered on 06/02/18at 10:07; Admin Dose 1 EA; Start 05/30/18 at 19:56 Patient Own Medication 1 ea QAM PO Last administered on 06/02/18at 10:07; Admin Dose 1 EA; Start 05/30/18 at 19:56 Patient Own Medication 1 ea QPM PO Last administered on 06/01/18at 21:58; Admin Dose 1 EA; Start 05/30/18 at 19:56 Patient Own Medication 1 ea BID PO Last administered on 06/02/18at 10:07; Admin Dose 1 EA; Start 05/30/18 at 19:56 Ondansetron HCl (Zofran Inj) 4 mg Q6H PRN IV NAUSEA AND/OR VOMITING; Start 05/30/18 at 19:56 Miscellaneous Information (Pending Santyl Order For Wound Care) This patient ly... PRN PRN XX wound care; Start 05/30/18 at 19:56 Docusate Sodium (Colace Liquid Cup) 100 mg BID PO Last administered on 06/02/18at 10:09; Admin Dose 100 MG; Start 05/31/18 at 21:00 Polyethylene Glycol (Miralax) 17 gm DAILY PO Last administered on 06/02/18at 10:06; Admin Dose 17 GM; Start 06/03/18 at 09:00 Lactulose (Enulose) 20 gm DAILY PRN PO CONSTIPATION; Start 06/02/18 at 10:00 Senna (Senokot) 1 tab DAILY PO ; Start 06/03/18 at 09:00 Bisacodyl (Dulcolax Supp) 10 mg DAILY PRN [place] CONSTIPATION; Start 06/02/18 at 10:00 VTE Prophylaxis Risk score (from Nsg)>0 risk: 3 SCD applied (from Ns): Yes Lines/Catheters IV Catheter Type: Vidales in Place: No Assessment/Plan Hospital Course subjective no acute issues overnight Objective Physical exam General: Patient is laying in bed and answers questions appropriately Mentation: Patient is alert and oriented 4, Head: Normocephalic atraumatic Eyes: EOMI, pupils reactive to light Neck: Supple, nontender, midline Respiratory: Clear to auscultation bilaterally Cardiovascular: regular rate, no obvious murmurs Gastrointestinal: non-tender to palpation, bowel sounds heard. 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 JESUS DAVIS Jun 02, 2018 14:43
--- NOTE | 2018-06-02 15:30 | NUR ---
NUTRITION NOTE: Pt was seen asleep at time of visit, not aroused by calling name, allowed for pt to rest. Pt was seen earlier by INSTRUMENT LENS GRINDER APPRENTICE for swallow evaluation. Per INSTRUMENT LENS GRINDER APPRENTICE, pt noted with mild-mod oropharygneal dysphagia, continues with pureed diet. Recorded PO 50-100% (average ~75%). No reported n/v/d. Per flowsheet, LBM 05/28. On colace and miralax. Continue bowel regimen PRN. Will offer Prune juice at tonight's dinner. Will continue to monitor.
--- NOTE | 2018-06-02 17:00 | NUR ---
Patient up in wheelchair doing rehab exercises. Offered TV & educational materials for recreational activities. Alert, oriented x 1 with periods of confusion. No SOB. Denies pain. No seizure episode noted. Patient & refused padded siderails. Offered 3x but refused 3x. Explained risks & benefits but they still refused. Kept clean & dry. All due meds given. Call light within reach. Chair alarm on. Kept comfortable.
--- NOTE | 2018-06-02 17:02 | CONS ---
Assessment/Plan Assessment/Plan Hospital Course 67 yo M with Hx of brain tumor NOS, s/p radiation therapy and c/b epilepsy who presents to [facility] for acute rehab... following a recent hospitalization for acute limb weakness. MRI confirmed an enhancing and diffusion restricting lesion in the R parietal lobe, concerning for stroke vs. tumor recurrence.. MRA H/N was without evidence of multifocal stenoses.. Echos were unrevealing. P: Cont ASA/Lipitor daily for secondary stroke prevention PT/OT/ST per assistant infant toddler teacher Recommend repeat MRI brain in ~1 mo for further characterization Will follow clinically. Result Diagram: 05/31/18 0702 05/31/18 0702 Consultation Date/Type/Reason Admit Date/Time May 30, 2018 at 16:24 Type of Consult Neurology Requesting Provider: RAMA LONG MD, [facility] Date/Time of Note DATE: 06/02/18 TIME: 16:59 24 HR Interval Summary Free Text/Dictation Continues [facility]. Pt up with physical therapy. Reportedly still having difficulty swallowing. Exam Vital Signs Vitals Vital Signs Date Temp Pulse Resp B/P (MAP) Pulse Ox O2 O2 Flow FiO2 Time Delivery Rate 06/02/18 97.2 77 18 95/65 (75) 96 Room Air 14:16 Intake and Output 06/01/18 06/01/18 06/02/18 1515:00 23:00 07:00 IntakeIntake Total 800 ml 1200 ml OutputOutput Total 750 ml 800 ml 250 ml BalanceBalance 50 ml 400 ml -250 ml Exam PE: Gen Appearance: No Apparent Distress HEENT: Normocephalic Cardiovascular: Regular rate Lungs: Clear bilaterally Abdomen: Soft Extremities: Dry NE: The patient was awake, alert, and oriented. Speech was slightly dysarthric and dysphasic. Fund of knowledge was adequate. Pupils were equal and reactive to light. There was no afferent pupillary defect. Visual brock were normal. Funduscopic examination was limited. Extra-ocular movements were full. Ptosis was absent. There was no nystagmus. Facial sensation was diminished on the R. Face was asymmetric on the R with diminished activation on the R. Hearing was intact. Palate movements were normal. Neck strength was normal. There was normal tongue bulk and speed of movement. Tone was normal. Muscle bulk was normal. I did not see fasciculations. L arm was strong to confrontation, R arm was antigravity. LLE was strong to confrontation and RLE was mildly weak. Vibration sensation and sensation to light touch was diminished on the R vs L. Temperature and pinprick sensation was normal. Rapid alternating movements were normal. There was no dysmetria. There was no intention tremor. No postural instability noted upon standing. Gait was unsteady, requiring a FWW and one person assist. Arm and leg reflexes were 2+ and symmetric. Cerda's sign was absent. Plantar responses were flexor. LAUREN YOUNG NP Jun 02, 2018 17:02 LEONEL ANDERSON Jun 03, 2018 07:58
[2018-06-02 19:21] VITALS: BP 100/77; PULSE 99; RESP 18
--- NOTE | 2018-06-02 20:00 | NUR ---
Side Pads Refused Pt has hx of seizure but refused the side rail pads per . will continue to monitor
[2018-06-02] MEDS: ATORVASTATIN 20 MG TAB PO SCH (22:01)
[2018-06-02] MEDS: RANITIDINE 150 MG TAB PO SCH (22:01)
[2018-06-02] MEDS: CLOBAZAM 20 MG PO SCH (22:01)
[2018-06-03 02:00] VITALS: BP 110/68; PULSE 82; RESP 18
--- NOTE | 2018-06-03 05:13 | NUR ---
Received patient at 0330. Patient slept well. No distress. No pain. No seizure activity noted. Incontinent of urine, assisted with incontinent car. Hourly round done. Bed in low position. Bedside table and call light in reach. Bed alarm on.
[2018-06-03 07:30] VITALS: BP 134/72; PULSE 70; RESP 18
[2018-06-03] MEDS: ASPIRIN 81 MG TAB PO SCH (09:41)
[2018-06-03] MEDS: SENNA TAB PO SCH (09:41)
[2018-06-03] MEDS: METOPROLOL (XL) 25 MG TAB PO SCH (09:41)
[2018-06-03] MEDS: DOCUSATE SODIUM 10 MG/ML (10ML CUP) PO SCH ×2 (09:41→21:58)
[2018-06-03] MEDS: DEXAMETHASONE 2 MG TAB PO SCH (09:42)
[2018-06-03] MEDS: MEMANTINE 10 MG TAB PO SCH ×2 (09:42→21:58)
[2018-06-03] MEDS: LACOSAMIDE 200 MG PO SCH ×2 (09:43→22:14)
[2018-06-03] MEDS: CLOBAZAM 10 MG PO SCH ×2 (09:54→09:59)
[2018-06-03] MEDS: BRIVIACT 100 MG PO SCH ×3 (09:54→22:14)
--- NOTE | 2018-06-03 12:37 | PN ---
Date/Time of Note Date/Time of Note DATE: 06/03/18 TIME: 12:37 Objective Vitals Vital Signs Date Temp Pulse Resp B/P (MAP) Pulse Ox O2 O2 Flow FiO2 Time Delivery Rate 06/03/18 97.5 70 18 134/72 93 Room Air 07:30 (92) Intake and Output 06/02/18 06/02/18 06/03/18 1515:00 23:00 07:00 IntakeIntake Total 50 ml 1150 ml 950 ml OutputOutput Total 520 ml BalanceBalance 50 ml 630 ml 950 ml Results Result Diagram: 05/31/18 0702 05/31/18 0702 Medications Medications Current Medications Acetaminophen (Tylenol Tab) 650 mg Q6H PRN PO MILD PAIN(1-3)OR ELEVATED TEMP; Start 05/30/18 at 18:30 Aspirin (Aspirin) 81 mg DAILY PO Last administered on 06/03/18at 09:41; Admin Dose 81 MG; Start 05/31/18 at 09:00 Atorvastatin Calcium (Lipitor) 20 mg HS PO Last administered on 06/02/18at 22:01; Admin Dose 20 MG; Start 05/30/18 at 21:00 Dexamethasone (Decadron) 2 mg DAILY PO Last administered on 06/03/18at 09:42; Admin Dose 2 MG; Start 05/31/18 at 09:00 Acetaminophen/ Hydrocodone Bitart ([place] (5/325)) 1 tab Q6H PRN PO MODERATE PAIN LEVEL 4-6; Start 05/30/18 at 18:30 Ibuprofen (Motrin) 200 mg Q6H PRN PO MILD PAIN(1-3) OR TEMP>38C; Start 05/30/18 at 18:30 Lorazepam (Ativan) 0.5 mg QID PRN PO ANXIETY; Start 05/30/18 at 18:30 Memantine (Namenda) 10 mg BID PO Last administered on 06/03/18at 09:42; Admin Dose 10 MG; Start 05/30/18 at 21:00 Metoprolol Succinate (Toprol Xl) 12.5 mg DAILY PO Last administered on 06/03at 09:41; Admin Dose 12.5 MG; Start 05/31/18 at 09:00 Miscellaneous Information (* Miscellaneous Pharmacy Order) 1 ea BID PO ; Start 05/30/18 at 21:00 Miscellaneous Information (* Miscellaneous Pharmacy Order) 1 ea DAILY PO ; Start 05/31/18 at 09:00 Miscellaneous Information (* Miscellaneous Pharmacy Order) 1 ea HS PO ; Start 05/30/18 at 21:00 Miscellaneous Information (* Miscellaneous Pharmacy Order) 1 ea BID PO ; Start 05/30/18 at 21:00 Ranitidine HCl (Zantac) 150 mg HS PO Last administered on 06/02/18 22:01; Admin Dose 150 MG; Start 05/30/18 at 21:00 Zolpidem Tartrate (Ambien) 5 mg HS PRN PO INSOMNIA Last administered on 06/03/18 00:02; Admin Dose 5 MG; Start 05/30/18 at 18:30 Patient Own Medication 1 ea BID PO Last administered on 06/03/18 09:59; Admin Dose 1 EA; Start 05/30/18 at 19:56 Patient Own Medication 1 ea QAM PO Last administered on 06/03/18 09:59; Admin Dose 1 EA; Start 05/30/18 at 19:56 Patient Own Medication 1 ea QPM PO Last administered on 06/02/18 22:01; Admin Dose 1 EA; Start 05/30/18 at 19:56 Patient Own Medication 1 ea BID PO Last administered on 06/03/18 09:43; Admin Dose 1 EA; Start 05/30/18 at 19:56 Ondansetron HCl (Zofran Inj) 4 mg Q6H PRN IV NAUSEA AND/OR VOMITING; Start 05/30/18 at 19:56 Miscellaneous Information (Pending Santyl Order For Wound Care) This patient ly... PRN PRN XX wound care; Start 05/30/18 at 19:56 Docusate Sodium (Colace Liquid Cup) 100 mg BID PO Last administered on 06/03/18 09:41; Admin Dose 100 MG; Start 05/31/18 at 21:00 Polyethylene Glycol (Miralax) 17 gm DAILY PO Last administered on 06/02/18 10:06; Admin Dose 17 GM; Start 06/03/18 at 09:00 Lactulose (Enulose) 20 gm DAILY PRN PO CONSTIPATION Last administered on 06/02/18 16:49; Admin Dose 20 GM; Start 06/02/18 at 10:00 Senna (Senokot) 1 tab DAILY PO Last administered on 06/03/18at 09:41; Admin Dose 1 TAB; Start 06/03/18 at 09:00 Bisacodyl (Dulcolax Supp) 10 mg DAILY PRN [place] CONSTIPATION; Start 06/02/18 at 10:00 VTE Prophylaxis Risk score (from Ns)>0 risk: 3 SCD applied (from [facility]): Yes Lines/Catheters IV Catheter Type: [place] in Place: No Assessment/Plan Hospital Course subjective no acute issues overnight Objective Physical exam General: Patient is laying in bed and answers questions appropriately Mentation: Patient is alert and oriented 4, Head: Normocephalic atraumatic Eyes: EOMI, pupils reactive to light Neck: Supple, nontender, midline Respiratory: Clear to auscultation bilaterally Cardiovascular: regular rate, no obvious murmurs Gastrointestinal: non-tender to palpation, bowel sounds heard. 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 -Follow-up with neuro oncologist after rehab Hypertension -Manage as needed asymptomatic Seizures -Continue home meds Dyslipidemia -Continue meds History of dementia -Continue home meds GERD -Continue home meds New finding of small PFO on LAKSHMI -Need surgical repair, family and knows to follow-up at [facility] after discharge. JESUS DAVIS Jun 03, 2018 12:37
[2018-06-03 14:00] VITALS: BP 102/67; PULSE 74; RESP 16
--- NOTE | 2018-06-03 17:00 | NUR ---
Patient in bed talking to his . Offered TV & educational materials for recreational activities. Alert, oriented x 1 with periods of confusion. No SOB. Denies pain. No seizure episode noted. Patient & refused padded siderails. Offered 3x but refused 3x. Explained risks & benefits but they still refused. Kept clean & dry. All due meds given. Call light within reach. Bed alarm on & in low position. Kept comfortable.
[2018-06-03 19:36] VITALS: BP 118/75; PULSE 78; RESP 18
--- NOTE | 2018-06-03 21:38 | NUR ---
[facility] RN Weekly Summary Dates From: 05/30/18 to 06/03/18 Patient Name: NICK NEWTON MR#: [id number] Height: 5 ft 9 in Weight: 182 lbs 5.157 oz 82.700 kg Reason for Visit: STROKE Precautions: Fall. Pressure Ulcer. Aspiration Date: 06/03/18 Time: 2137 User: JHOANA TILLEY Short-term Goals: 1. No fall, no injury 2. Skin integrity will be maintained 3. Continent of B&B 4. No episode of aspiration 5. No s/s of bleeding Patient's progress: Fair Short-term goals not met and reason/barriers: Ongoing Bladder - level of function and accidents: 1, 12 accidents Bowel - level of function and accidents: 4, No accident Skin: Non-intact Status: Right arm with skin tear and bruises Treatment: as per order Changes: No Pain: No Level: 0/10 Location: Management: Changes: Functional levels: Self Care: 1 Transfers: 1 Locomotion: 1 Assistance requirements: Communication: 2 Social Cognition: 2 Safety awareness: No, confused. Does not call for assistance. Interdisciplinary interactions: MD, PT, OT, ST, SW, RN Patient education: Yes, q.shift and prn on medication, safety, use of call light, and as documented Discharge needs: Ongoing Comorbid conditions: 1. Dysphagia. 2. History of brain tumor with anaplastic astrocytoma. 3. Hypertension. 4. Hyperlipidemia. 5. Gastroesophageal reflux disease. 6. Seizure disorder. 7. PFO 8. Impairments in self-care, mobility and cognition. Plan of Care continuation: Yes, continue current POC
[2018-06-03] MEDS: ATORVASTATIN 20 MG TAB PO SCH (21:58)
[2018-06-03] MEDS: RANITIDINE 150 MG TAB PO SCH (21:58)
[2018-06-03] MEDS: CLOBAZAM 20 MG PO SCH (22:14)
[2018-06-04 02:00] VITALS: BP 113/68; PULSE 83; RESP 18
--- NOTE | 2018-06-04 05:05 | NUR ---
Pt stable with no acute distress noted. During shift, pt slept on and off and noted with episodes of getting out of bed multiple times. Frequent redirection provided. Due medications given and all needs attended. No complaints of any pain/discomfort. Pt on strict aspiration precaution, meds crushed and given with apple sauce. Pt continent vs incontinent, no BM noted. Time void every Q2H as ordered. Safety measures in place. Hourly rounding made. Bed alarm activated for safety. bed side rails up and call light within pt's reach. Addendum: 06/04/18 at 0538 by BELLE ALVAREZ RN ADDENDUM: Pt still continues to refuse padded side rails and kept taking them off. aware of refusal and aware of risk and benefits and educated patient as well.
[2018-06-04 07:00] VITALS: BP 122/72; PULSE 67; RESP 18
--- NOTE | 2018-06-04 08:35 | PN ---
Date/Time of Note Date/Time of Note DATE: 06/04/18 TIME: 08:34 Subjective No new complaints Objective Vital Signs Date Temp Pulse Resp B/P (MAP) Pulse Ox O2 O2 Flow FiO2 Time Delivery Rate 06/04/18 98.5 83 18 113/68 92 Room Air 02:00 (83) Intake and Output 06/03/18 06/03/18 06/04/18 1515:00 23:00 07:00 IntakeIntake Total 300 ml 1100 ml OutputOutput Total 700 ml 550 ml BalanceBalance 300 ml 400 ml -550 ml Results/Medications Result Diagram: 05/31/18 0702 05/31/18 0702 Medications Current Medications Acetaminophen (Tylenol Tab) 650 mg Q6H PRN PO MILD PAIN(1-3)OR ELEVATED TEMP; Start 05/30/18 at 18:30 Aspirin (Aspirin) 81 mg DAILY PO Last administered on 06/03/18at 09:41; Admin Dose 81 MG; Start 05/31/18 at 09:00 Atorvastatin Calcium (Lipitor) 20 mg HS PO Last administered on 06/03/18at 21:58; Admin Dose 20 MG; Start 05/30/18 at 21:00 Dexamethasone (Decadron) 2 mg DAILY PO Last administered on 06/03/18 09:42; Admin Dose 2 MG; Start 05/31/18 at 09:00 Acetaminophen/ Hydrocodone Bitart ([place] (5/325)) 1 tab Q6H PRN PO MODERATE PAIN LEVEL 4-6; Start 05/30/18 at 18:30 Ibuprofen (Motrin) 200 mg Q6H PRN PO MILD PAIN(1-3) OR TEMP>38C; Start 05/30/18 at 18:30 Lorazepam (Ativan) 0.5 mg QID PRN PO ANXIETY Last administered on 06/04/18at 02:10; Admin Dose 0.5 MG; Start 05/30/18 at 18:30 Memantine (Namenda) 10 mg BID PO Last administered on 06/03/18 21:58; Admin Dose 10 MG; Start 05/30/18 at 21:00 Metoprolol Succinate (Toprol Xl) 12.5 mg DAILY PO Last administered on 06/03/18 09:41; Admin Dose 12.5 MG; Start 05/31/18 at 09:00 Miscellaneous Information (* Miscellaneous Pharmacy Order) 1 ea BID PO ; Start 05/30/18 at 21:00 Miscellaneous Information (* Miscellaneous Pharmacy Order) 1 ea DAILY PO ; Start 05/31/18 at 09:00 Miscellaneous Information (* Miscellaneous Pharmacy Order) 1 ea HS PO ; Start 05/30/18 at 21:00 Miscellaneous Information (* Miscellaneous Pharmacy Order) 1 ea BID PO ; Start 05/30/18 at 21:00 Ranitidine HCl (Zantac) 150 mg HS PO Last administered on 06/03/18at 21:58; Admin Dose 150 MG; Start 05/30/18 at 21:00 Zolpidem Tartrate (Ambien) 5 mg HS PRN PO INSOMNIA Last administered on 06/03/18at 00:02; Admin Dose 5 MG; Start 05/30/18 at 18:30 Patient Own Medication 1 ea BID PO Last administered on 06/03/18at 22:14; Admin Dose 1 EA; Start 05/30/18 at 19:56 Patient Own Medication 1 ea QAM PO Last administered on 06/03/18at 09:59; Admin Dose 1 EA; Start 05/30/18 at 19:56 Patient Own Medication 1 ea QPM PO Last administered on 06/03/18at 22:14; Admin Dose 1 EA; Start 05/30/18 at 19:56 Patient Own Medication 1 ea BID PO Last administered on 06/03/18at 22:14; Admin Dose 1 EA; Start 05/30/18 at 19:56 Ondansetron HCl (Zofran Inj) 4 mg Q6H PRN IV NAUSEA AND/OR VOMITING; Start 05/30/18 at 19:56 Miscellaneous Information (Pending Santyl Order For Wound Care) This patient ly... PRN PRN XX wound care; Start 05/30/18 at 19:56 Docusate Sodium (Colace Liquid Cup) 100 mg BID PO Last administered on 06/03/18at 21:58; Admin Dose 100 MG; Start 05/31/18 at 21:00 Polyethylene Glycol (Miralax) 17 gm DAILY PO Last administered on 06/02/18at 10:06; Admin Dose 17 GM; Start 06/03/18 at 09:00 Lactulose (Enulose) 20 gm DAILY PRN PO CONSTIPATION Last administered on 06/02/18at 16:49; Admin Dose 20 GM; Start 06/02/18 at 10:00 Senna (Senokot) 1 tab DAILY PO Last administered on 06/03/18at 09:41; Admin Dose 1 TAB; Start 06/03/18 at 09:00 Bisacodyl (Dulcolax Supp) 10 mg DAILY PRN [place] CONSTIPATION; Start 06/02/18 at 10:00 Assessment/Plan Additional Assessment/Plan Rehab- 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 Continue rehab activities Dysphagia-continue speech Hypertension. Hyperlipidemia. Gastroesophageal reflux disease. Seizure disorder. SIA SANTOS MD Jun 04, 2018 08:35
[2018-06-04] MEDS: METOPROLOL (XL) 25 MG TAB PO SCH (09:00)
[2018-06-04] MEDS: POLYETHYLENE GLYCOL 17 GM PACKET PO SCH (11:00)
[2018-06-04] MEDS: ASPIRIN 81 MG TAB PO SCH (11:01)
[2018-06-04] MEDS: DEXAMETHASONE 2 MG TAB PO SCH (11:01)
[2018-06-04] MEDS: MEMANTINE 10 MG TAB PO SCH ×2 (11:01→21:00)
[2018-06-04] MEDS: SENNA TAB PO SCH (11:01)
[2018-06-04] MEDS: DOCUSATE SODIUM 10 MG/ML (10ML CUP) PO SCH ×2 (11:01→21:00)
[2018-06-04] MEDS: LACOSAMIDE 200 MG PO SCH ×2 (11:02→21:00)
[2018-06-04] MEDS: BRIVIACT 100 MG PO SCH ×2 (11:02→21:00)
[2018-06-04] MEDS: CLOBAZAM 10 MG PO SCH (11:02)
[2018-06-04 14:00] VITALS: BP 108/69; PULSE 74; RESP 18
--- NOTE | 2018-06-04 17:13 | PN ---
Date/Time of Note Date/Time of Note DATE: 06/04/18 TIME: 17:12 Assessment/Plan VTE Prophylaxis Risk score (from Nsg)>0 risk: 3 SCD applied (from Nsg): Yes Pharmacological prophylaxis: heparin Lines/Catheters IV Catheter Type (from Nrsg): Peripheral IV Urinary Cath still in place: No Assessment/Plan Hospital Course Physical exam General: Patient is laying in bed and answers questions appropriately Mentation: Patient is alert and oriented 4, Head: Normocephalic atraumatic Eyes: EOMI, pupils reactive to light Neck: Supple, nontender, midline Respiratory: Clear to auscultation bilaterally Cardiovascular: regular rate, no obvious murmurs Gastrointestinal: non-tender to palpation, bowel sounds heard. 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, chronic left basal ganglia lacunar infarct -Full workup done -In rehab -Residual right upper extremity and right facial droop is the main insult, will be working with physical therapy, occupational therapy, speech therapy Anaplastic astrocytoma - Decadron 2 mg -On chemotherapy -Follow-up at [facility] -Follow-up with neuro oncologist after rehab Hypertension -Manage as needed asymptomatic Seizures -Continue home meds Dyslipidemia -Continue meds History of dementia -Continue home meds GERD -Continue home meds New finding of small PFO on LAKSHMI -Need surgical repair, family and knows to follow-up at [facility] after discharge. Result Diagram: 05/31/18 0702 05/31/18 0702 Subjective 24 Hr Interval Summary Free Text/Dictation Working with PT, doing well no complaitns Exam/Review of Systems Vital Signs Vitals Vital Signs Date Temp Pulse Resp B/P (MAP) Pulse Ox O2 O2 Flow FiO2 Time Delivery Rate 06/04/18 97.2 74 18 108/69 93 Room Air 14:00 (82) Intake and Output 06/03/18 06/03/18 06/04/18 1414:59 22:59 06:59 IntakeIntake Total 300 ml 1100 ml OutputOutput Total 700 ml 550 ml BalanceBalance 300 ml 400 ml -550 ml Medications Medications Current Medications Acetaminophen (Tylenol Tab) 650 mg Q6H PRN PO MILD PAIN(1-3)OR ELEVATED TEMP; Start 05/30/18 at 18:30 Aspirin (Aspirin) 81 mg DAILY PO Last administered on 06/04/18 11:01; Admin Dose 81 MG; Start 05/31/18 at 09:00 Atorvastatin Calcium (Lipitor) 20 mg HS PO Last administered on 06/03/18 21:58; Admin Dose 20 MG; Start 05/30/18 at 21:00 Dexamethasone (Decadron) 2 mg DAILY PO Last administered on 06/04/18 11:01; Admin Dose 2 MG; Start 05/31/18 at 09:00 Acetaminophen/ Hydrocodone Bitart ([place] (5/325)) 1 tab Q6H PRN PO MODERATE PAIN LEVEL 4-6; Start 05/30/18 at 18:30 Ibuprofen (Motrin) 200 mg Q6H PRN PO MILD PAIN(1-3) OR TEMP>38C; Start 05/30/18 at 18:30 Lorazepam (Ativan) 0.5 mg QID PRN PO ANXIETY Last administered on 06/04/18 02:10; Admin Dose 0.5 MG; Start 05/30/18 at 18:30 Memantine (Namenda) 10 mg BID PO Last administered on 06/04/18 11:01; Admin Dose 10 MG; Start 05/30/18 at 21:00 Metoprolol Succinate (Toprol Xl) 12.5 mg DAILY PO Last administered on 06/03/18 09:41; Admin Dose 12.5 MG; Start 05/31/18 at 09:00 Miscellaneous Information (* Miscellaneous Pharmacy Order) 1 ea BID PO ; Start 05/30/18 at 21:00 Miscellaneous Information (* Miscellaneous Pharmacy Order) 1 ea DAILY PO ; Start 05/31/18 at 09:00 Miscellaneous Information (* Miscellaneous Pharmacy Order) 1 ea HS PO ; Start 05/30/18 at 21:00 Miscellaneous Information (* Miscellaneous Pharmacy Order) 1 ea BID PO ; Start 05/30/18 at 21:00 Ranitidine HCl (Zantac) 150 mg HS PO Last administered on 06/03/18 21:58; Admin Dose 150 MG; Start 05/30/18 at 21:00 Zolpidem Tartrate (Ambien) 5 mg HS PRN PO INSOMNIA Last administered on 06/03/18 00:02; Admin Dose 5 MG; Start 05/30/18 at 18:30 Patient Own Medication 1 ea BID PO Last administered on 06/04/18 11:02; Admin Dose 1 EA; Start 05/30/18 at 19:56 Patient Own Medication 1 ea QAM PO Last administered on 06/04/18 11:02; Admin Dose 1 EA; Start 05/30/18 at 19:56 Patient Own Medication 1 ea QPM PO Last administered on 06/03/18 22:14; Admin Dose 1 EA; Start 05/30/18 at 19:56 Patient Own Medication 1 ea BID PO Last administered on 06/04/18 11:02; Admin Dose 1 EA; Start 05/30/18 at 19:56 Ondansetron HCl (Zofran Inj) 4 mg Q6H PRN IV NAUSEA AND/OR VOMITING; Start 05/30/18 at 19:56 Miscellaneous Information (Pending [facility] Order For Wound Care) This patient ly... PRN PRN XX wound care; Start 05/30/18 at 19:56 Docusate Sodium (Colace Liquid Cup) 100 mg BID PO Last administered on 06/04/18 11:01; Admin Dose 100 MG; Start 05/31/18 at 21:00 Polyethylene Glycol (Miralax) 17 gm DAILY PO Last administered on 06/04/18 11:00; Admin Dose 17 GM; Start 06/03/18 at 09:00 Lactulose (Enulose) 20 gm DAILY PRN PO CONSTIPATION Last administered on 06/02/18at 16:49; Admin Dose 20 GM; Start 06/02/18 at 10:00 Senna (Senokot) 1 tab DAILY PO Last administered on 06/04/18 11:01; Admin Dose 1 TAB; Start 06/03/18 at 09:00 Bisacodyl (Dulcolax Supp) 10 mg DAILY PRN [place] CONSTIPATION; Start 06/02/18 at 10:00 STEFAN BEARD MD Jun 04, 2018 17:13
--- NOTE | 2018-06-04 17:38 | NUR ---
Patient is alert with episode of confusion. patient with episode of getting out of bed with out calling staff. reoriented patient and reminded to call when needed help. patient ambulates in the hallway with me and a family member using fww. patient tolerated well. Patient remains on Pureed diet. with episode of coughing when swallowing. instruction given to run head to swallow. skin tear on right fore arm dressing change done with no s/sx of infection no bleeding and shows of healing stage.
[2018-06-04 19:28] VITALS: BP 123/80; PULSE 78; RESP 18
[2018-06-04] MEDS: ATORVASTATIN 20 MG TAB PO SCH (20:59)
[2018-06-04] MEDS: CLOBAZAM 20 MG PO SCH (21:00)
[2018-06-04] MEDS: RANITIDINE 150 MG TAB PO SCH (21:00)
[2018-06-05 01:39] VITALS: BP 112/71; PULSE 71; RESP 18
--- NOTE | 2018-06-05 06:00 | NUR ---
End of Shift note During the shift, pt walked around the unit with a walker, 1 round. Had 1 BM accident. Slept well. No pain complaints. Bed on lowest position, side rails up, bed alarm on, and call light within reach. will continue to monitor
[2018-06-05 07:30] VITALS: BP 117/73; PULSE 81; RESP 18
[2018-06-05] MEDS: BRIVIACT 100 MG PO SCH ×2 (09:42→20:37)
[2018-06-05] MEDS: LACOSAMIDE 200 MG PO SCH ×2 (09:42→20:37)
[2018-06-05] MEDS: POLYETHYLENE GLYCOL 17 GM PACKET PO SCH (09:42)
[2018-06-05] MEDS: DEXAMETHASONE 2 MG TAB PO SCH (09:43)
[2018-06-05] MEDS: MEMANTINE 10 MG TAB PO SCH ×2 (09:43→20:38)
[2018-06-05] MEDS: ASPIRIN 81 MG TAB PO SCH (09:43)
[2018-06-05] MEDS: CLOBAZAM 10 MG PO SCH (09:43)
[2018-06-05] MEDS: DOCUSATE SODIUM 10 MG/ML (10ML CUP) PO SCH ×2 (09:43→20:38)
[2018-06-05] MEDS: SENNA TAB PO SCH (09:43)
[2018-06-05] MEDS: METOPROLOL (XL) 25 MG TAB PO SCH (09:46)
[2018-06-05 14:00] VITALS: BP 101/65; PULSE 65; RESP 18
--- NOTE | 2018-06-05 14:05 | PN ---
Date/Time of Note Date/Time of Note DATE: 06/05/18 TIME: 14:03 Objective Vital Signs Date Temp Pulse Resp B/P (MAP) Pulse Ox O2 O2 Flow FiO2 Time Delivery Rate 06/05/18 97.8 81 18 117/73 93 Room Air 07:30 (88) Intake and Output 06/04/18 06/04/18 06/05/18 1515:00 23:00 07:00 IntakeIntake Total 1322 ml OutputOutput Total 1700 ml BalanceBalance -378 ml Exam Physical Exam: Pulm-cta Abd-soft BOWEL- Cont BLADDER-Cont/incont SKIN- skin tear OT- DRESSING- mod BATHING-mod TOILETING-mod PT- BED MOBILITY-mod TRANSFERS-mod AMBULATION-min 75 feet SPEECH- COGNITION-max Dysphagia- puree diet A/P- Interdisciplinary team conference held today. Please see interdisciplinary sheet. Working toward d.cMaria on 06/15 with post discharge follow up of physical therapy, occupational therapy. Results/Medications Medications Current Medications Acetaminophen (Tylenol Tab) 650 mg Q6H PRN PO MILD PAIN(1-3)OR ELEVATED TEMP; Start 05/30/18 at 18:30 Aspirin (Aspirin) 81 mg DAILY PO Last administered on 06/05/18at 09:43; Admin Dose 81 MG; Start 05/31/18 at 09:00 Atorvastatin Calcium (Lipitor) 20 mg HS PO Last administered on 06/04/18at 20:59; Admin Dose 20 MG; Start 05/30/18 at 21:00 Dexamethasone (Decadron) 2 mg DAILY PO Last administered on 06/05/18at 09:43; Admin Dose 2 MG; Start 05/31/18 at 09:00 Acetaminophen/ Hydrocodone Bitart ([place] (5/325)) 1 tab Q6H PRN PO MODERATE PAIN LEVEL 4-6; Start 05/30/18 at 18:30 Ibuprofen (Motrin) 200 mg Q6H PRN PO MILD PAIN(1-3) OR TEMP>38C; Start 05/30/18 at 18:30 Lorazepam (Ativan) 0.5 mg QID PRN PO ANXIETY Last administered on 06/04/18at 02:10; Admin Dose 0.5 MG; Start 05/30/18 at 18:30 Memantine (Namenda) 10 mg BID PO Last administered on 06/05/18 09:43; Admin Dose 10 MG; Start 05/30/18 at 21:00 Metoprolol Succinate (Toprol Xl) 12.5 mg DAILY PO Last administered on 06/05/18 09:46; Admin Dose 12.5 MG; Start 05/31/18 at 09:00 Miscellaneous Information (* Miscellaneous Pharmacy Order) 1 ea BID PO ; Start 05/30/18 at 21:00 Miscellaneous Information (* Miscellaneous Pharmacy Order) 1 ea DAILY PO ; Start 05/31/18 at 09:00 Miscellaneous Information (* Miscellaneous Pharmacy Order) 1 ea HS PO ; Start 05/30/18 at 21:00 Miscellaneous Information (* Miscellaneous Pharmacy Order) 1 ea BID PO ; Start 05/30/18 at 21:00 Ranitidine HCl (Zantac) 150 mg HS PO Last administered on 06/04/18at 21:00; Admin Dose 150 MG; Start 05/30/18 at 21:00 Zolpidem Tartrate (Ambien) 5 mg HS PRN PO INSOMNIA Last administered on 06/03/18 00:02; Admin Dose 5 MG; Start 05/30/18 at 18:30 Patient Own Medication 1 ea BID PO Last administered on 06/05/18 09:42; Admin Dose 1 EA; Start 05/30/18 at 19:56 Patient Own Medication 1 ea QAM PO Last administered on 06/05/18 09:43; Admin Dose 1 EA; Start 05/30/18 at 19:56 Patient Own Medication 1 ea QPM PO Last administered on 06/04/18 21:00; Admin Dose 1 EA; Start 05/30/18 at 19:56 Patient Own Medication 1 ea BID PO Last administered on 06/05/18 09:42; Admin Dose 1 EA; Start 05/30/18 at 19:56 Ondansetron HCl (Zofran Inj) 4 mg Q6H PRN IV NAUSEA AND/OR VOMITING; Start 05/30/18 at 19:56 Miscellaneous Information (Pending Santyl Order For Wound Care) This patient ly... PRN PRN XX wound care; Start 05/30/18 at 19:56 Docusate Sodium (Colace Liquid Cup) 100 mg BID PO Last administered on 06/05/18 09:43; Admin Dose 100 MG; Start 05/31/18 at 21:00 Polyethylene Glycol (Miralax) 17 gm DAILY PO Last administered on 06/05/18 09:42; Admin Dose 17 GM; Start 06/03/18 at 09:00 Lactulose (Enulose) 20 gm DAILY PRN PO CONSTIPATION Last administered on 06/02/18 16:49; Admin Dose 20 GM; Start 06/02/18 at 10:00 Senna (Senokot) 1 tab DAILY PO Last administered on 06/05/18 09:43; Admin Dose 1 TAB; Start 06/03/18 at 09:00 Bisacodyl (Dulcolax Supp) 10 mg DAILY PRN [place] CONSTIPATION; Start 06/02/18 at 10:00 SIA SINHA MD Jun 05, 2018 14:05
--- NOTE | 2018-06-05 16:01 | PN ---
Date/Time of Note Date/Time of Note DATE: 06/05/18 TIME: 16:00 Assessment/Plan VTE Prophylaxis Risk score (from Nsg)>0 risk: 5 SCD applied (from Nsg): Yes Pharmacological prophylaxis: heparin Lines/Catheters IV Catheter Type (from Nrsg): Peripheral IV Urinary Cath still in place: No Assessment/Plan Hospital Course Physical exam General: Patient is laying in bed and answers questions appropriately Mentation: Patient is alert and oriented 4, Head: Normocephalic atraumatic Eyes: EOMI, pupils reactive to light Neck: Supple, nontender, midline Respiratory: Clear to auscultation bilaterally Cardiovascular: regular rate, no obvious murmurs Gastrointestinal: non-tender to palpation, bowel sounds heard. 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 Subjective 24 Hr Interval Summary Free Text/Dictation Workign with PT Exam/Review of Systems Vital Signs Vitals Vital Signs Date Temp Pulse Resp B/P (MAP) Pulse Ox O2 O2 Flow FiO2 Time Delivery Rate 06/05/18 97.8 81 18 117/73 93 Room Air 07:30 (88) Intake and Output 06/04/18 06/04/18 06/05/18 1515:00 23:00 07:00 IntakeIntake Total 1322 ml OutputOutput Total 1700 ml BalanceBalance -378 ml Medications Medications Current Medications Acetaminophen (Tylenol Tab) 650 mg Q6H PRN PO MILD PAIN(1-3)OR ELEVATED TEMP; Start 05/30/18 at 18:30 Aspirin (Aspirin) 81 mg DAILY PO Last administered on 06/05/18 09:43; Admin Dose 81 MG; Start 05/31/18 at 09:00 Atorvastatin Calcium (Lipitor) 20 mg HS PO Last administered on 06/04/18at 20:59; Admin Dose 20 MG; Start 05/30/18 at 21:00 Dexamethasone (Decadron) 2 mg DAILY PO Last administered on 06/05/18 09:43; Admin Dose 2 MG; Start 05/31/18 at 09:00 Acetaminophen/ Hydrocodone Bitart ([place] (5/325)) 1 tab Q6H PRN PO MODERATE PAIN LEVEL 4-6; Start 05/30/18 at 18:30 Ibuprofen (Motrin) 200 mg Q6H PRN PO MILD PAIN(1-3) OR TEMP>38C; Start 05/30/18 at 18:30 Lorazepam (Ativan) 0.5 mg QID PRN PO ANXIETY Last administered on 06/04/18at 02:10; Admin Dose 0.5 MG; Start 05/30/18 at 18:30 Memantine (Namenda) 10 mg BID PO Last administered on 06/05/18 09:43; Admin Dose 10 MG; Start 05/30/18 at 21:00 Metoprolol Succinate (Toprol Xl) 12.5 mg DAILY PO Last administered on 06/05/18at 09:46; Admin Dose 12.5 MG; Start 05/31/18 at 09:00 Miscellaneous Information (* Miscellaneous Pharmacy Order) 1 ea BID PO ; Start 05/30/18 at 21:00 Miscellaneous Information (* Miscellaneous Pharmacy Order) 1 ea DAILY PO ; Start 05/31/18 at 09:00 Miscellaneous Information (* Miscellaneous Pharmacy Order) 1 ea HS PO ; Start 05/30/18 at 21:00 Miscellaneous Information (* Miscellaneous Pharmacy Order) 1 ea BID PO ; Start 05/30/18 at 21:00 Ranitidine HCl (Zantac) 150 mg HS PO Last administered on 06/04/18at 21:00; Admin Dose 150 MG; Start 05/30/18 at 21:00 Zolpidem Tartrate (Ambien) 5 mg HS PRN PO INSOMNIA Last administered on 06/03/18at 00:02; Admin Dose 5 MG; Start 05/30/18 at 18:30 Patient Own Medication 1 ea BID PO Last administered on 06/05/18 09:42; Admin Dose 1 EA; Start 05/30/18 at 19:56 Patient Own Medication 1 ea QAM PO Last administered on 06/05/18 09:43; Admin Dose 1 EA; Start 05/30/18 at 19:56 Patient Own Medication 1 ea QPM PO Last administered on 06/04/18 21:00; Admin Dose 1 EA; Start 05/30/18 at 19:56 Patient Own Medication 1 ea BID PO Last administered on 06/05/18 09:42; Admin Dose 1 EA; Start 05/30/18 at 19:56 Ondansetron HCl (Zofran Inj) 4 mg Q6H PRN IV NAUSEA AND/OR VOMITING; Start 05/30/18 at 19:56 [facility] This patient ly... PRN PRN XX wound care; Start 05/30/18 at 19:56 Docusate Sodium (Colace Liquid Cup) 100 mg BID PO Last administered on 06/05/18 09:43; Admin Dose 100 MG; Start 05/31/18 at 21:00 Polyethylene Glycol (Miralax) 17 gm DAILY PO Last administered on 06/05/18 09:42; Admin Dose 17 GM; Start 06/03/18 at 09:00 Lactulose (Enulose) 20 gm DAILY PRN PO CONSTIPATION Last administered on 06/02/18 16:49; Admin Dose 20 GM; Start 06/02/18 at 10:00 Senna (Senokot) 1 tab DAILY PO Last administered on 06/05/18 09:43; Admin Dose 1 TAB; Start 06/03/18 at 09:00 Bisacodyl (Dulcolax Supp) 10 mg DAILY PRN [place] CONSTIPATION; Start 06/02/18 at 10:00 STEFAN BEARD MD Jun 05, 2018 16:00
--- NOTE | 2018-06-05 17:03 | CONS ---
Assessment/Plan Assessment/Plan Hospital Course 67 yo M with Hx of brain tumor NOS, s/p radiation therapy and c/b epilepsy who presents to [facility] for acute rehab... following a recent hospitalization for acute limb weakness. MRI confirmed an enhancing and diffusion restricting lesion in the R parietal lobe, concerning for stroke vs. tumor recurrence.. MRA H/N was without evidence of multifocal stenoses.. Echos were unrevealing. P: Cont ASA/Lipitor daily for secondary stroke prevention PT/OT/ST per securities trader Recommend repeat MRI brain in ~1 mo for further characterization Will follow clinically. Consultation Date/Type/Reason Admit Date/Time May 30, 2018 at 16:24 Type of Consult Neurology Requesting Provider: RAMA LONG MD, [facility] Date/Time of Note DATE: 06/05/18 TIME: 17:03 24 HR Interval Summary Free Text/Dictation Continues [facility]. Pt reportedly doing well today. No acute events or pt complaints noted. Exam Vital Signs Vitals Vital Signs Date Temp Pulse Resp B/P (MAP) Pulse Ox O2 O2 Flow FiO2 Time Delivery Rate 06/05/18 97.7 65 18 101/65 93 Room Air 14:00 (77) Intake and Output 06/04/18 06/04/18 06/05/18 1515:00 23:00 07:00 IntakeIntake Total 1322 ml OutputOutput Total 1700 ml BalanceBalance -378 ml Exam PE: Gen Appearance: No Apparent Distress HEENT: Normocephalic Cardiovascular: Regular rate Lungs: Clear bilaterally Abdomen: Soft Extremities: Dry NE: The patient was awake, alert, and oriented. Speech was slightly dysarthric and dysphasic. Fund of knowledge was adequate. Pupils were equal and reactive to light. There was no afferent pupillary defect. Visual brock were normal. Funduscopic examination was limited. Extra-ocular movements were full. Ptosis was absent. There was no nystagmus. Facial sensation was diminished on the R. Face was asymmetric on the R with diminished activation on the R. Hearing was intact. Palate movements were normal. Neck strength was normal. There was normal tongue bulk and speed of movement. Tone was normal. Muscle bulk was normal. I did not see fasciculations. L arm was strong to confrontation, R arm was mildly weak. LLE was strong to confrontation and RLE was mildly weak. Vibration sensation and sensation to light touch was diminished on the R vs L. Temperature and pinprick sensation was normal. Rapid alternating movements were normal. There was no dysmetria. There was no intention tremor. No postural instability noted upon standing. Gait was unsteady, requiring a FWW and one person assist. Arm and leg reflexes were 2+ and symmetric. Cerda's sign was absent. Plantar responses were flexor. LAUREN YOUNG NP Jun 05, 2018 17:03
--- NOTE | 2018-06-05 18:02 | NUR ---
Patient up in wheelchair doing rehab exercises. Offered TV & educational materials for recreational activities. Alert, oriented x 1 with periods of confusion & forgetfulness. No SOB. Denies pain. No seizure episode noted. Patient & refused padded siderails. Offered 3x but refused 3x. Explained risks & benefits but they still refused. Kept clean & dry. All due meds given. Call light within reach. Chair alarm on. Kept comfortable.
[2018-06-05 19:09] VITALS: BP 100/60; PULSE 75; RESP 18
[2018-06-05] MEDS: CLOBAZAM 20 MG PO SCH (20:37)
[2018-06-05] MEDS: RANITIDINE 150 MG TAB PO SCH (20:37)
[2018-06-05] MEDS: ATORVASTATIN 20 MG TAB PO SCH (20:38)
[2018-06-06 02:32] VITALS: BP 124/73; PULSE 62; RESP 18
[2018-06-06 07:30] VITALS: BP 122/71; PULSE 58; RESP 18
[2018-06-06] MEDS: MEMANTINE 10 MG TAB PO SCH ×2 (09:38→21:06)
[2018-06-06] MEDS: POLYETHYLENE GLYCOL 17 GM PACKET PO SCH (09:38)
[2018-06-06] MEDS: SENNA TAB PO SCH (09:38)
[2018-06-06] MEDS: DOCUSATE SODIUM 10 MG/ML (10ML CUP) PO SCH ×2 (09:38→21:06)
[2018-06-06] MEDS: BRIVIACT 100 MG PO SCH ×2 (09:39→21:06)
[2018-06-06] MEDS: CLOBAZAM 10 MG PO SCH (09:39)
[2018-06-06] MEDS: METOPROLOL (XL) 25 MG TAB PO SCH (09:39)
[2018-06-06] MEDS: LACOSAMIDE 200 MG PO SCH ×2 (09:39→21:06)
[2018-06-06] MEDS: DEXAMETHASONE 2 MG TAB PO SCH (09:39)
[2018-06-06] MEDS: ASPIRIN 81 MG TAB PO SCH (09:39)
--- NOTE | 2018-06-06 10:53 | NUR ---
[facility] PT Weekly Summary Dates From: to Patient Name: NICK NEWTON MR#: [id number] Height: 5 ft 9 in Weight: 182 lbs 5.157 oz 82.700 kg Reason for Visit: STROKE Precautions: aphasic, speak slow and loud, fall risk, Rt-side weakness, 2PA for gait, hx seizures Date: 06/06/18 Time: 1053 User: QUIN ALEJANDRO Short-term Goals: SBA bed mobility CGA with transfers Min A gait with least restrictive device x 75 ft SBA w/c mobility x 75 ft Pt making conservative gains during his stay at [facility]. Pt currently demonstrates Mod A for bed mobility, mod a for transfers, min A for gait using FWW 75ft, needing 2PA for safety. Barriers: Rt side-weakness, aphasic, dec hearing, confused, poor attention, poor problem solving, poor sequencing, poor retention, poor carryover of learning. Recommend home with HHPT and 24hr assistance. Cont POC and progress as tolerated. Addendum: 06/06/18 at 1059 by QUIN ALEJANDRO PT [facility] PT Weekly Summary Dates From: 05/31/18 to 06/06/18
--- NOTE | 2018-06-06 11:58 | PN ---
Date/Time of Note Date/Time of Note DATE: 06/06/18 TIME: 11:58 Subjective Comfortable Objective Vital Signs Date Temp Pulse Resp B/P (MAP) Pulse Ox O2 O2 Flow FiO2 Time Delivery Rate 06/06/18 97.5 58 18 122/71 95 Room Air 07:30 (88) Intake and Output 06/05/18 06/05/18 06/06/18 1515:00 23:00 07:00 IntakeIntake Total 50 ml 1200 ml OutputOutput Total 780 ml 750 ml BalanceBalance 50 ml 420 ml -750 ml Exam pulm-cta abd-soft min assist 75 feet Results/Medications Medications Current Medications Acetaminophen (Tylenol Tab) 650 mg Q6H PRN PO MILD PAIN(1-3)OR ELEVATED TEMP; Start 05/30/18 at 18:30 Aspirin (Aspirin) 81 mg DAILY PO Last administered on 06/06/18at 09:39; Admin Dose 81 MG; Start 05/31/18 at 09:00 Atorvastatin Calcium (Lipitor) 20 mg HS PO Last administered on 06/05/18at 20:38; Admin Dose 20 MG; Start 05/30/18 at 21:00 Dexamethasone (Decadron) 2 mg DAILY PO Last administered on 06/06/18 09:39; Admin Dose 2 MG; Start 05/31/18 at 09:00 Acetaminophen/ Hydrocodone Bitart ([place] (5/325)) 1 tab Q6H PRN PO MODERATE PAIN LEVEL 4-6; Start 05/30/18 at 18:30 Ibuprofen (Motrin) 200 mg Q6H PRN PO MILD PAIN(1-3) OR TEMP>38C; Start 05/30/18 at 18:30 Lorazepam (Ativan) 0.5 mg QID PRN PO ANXIETY Last administered on 06/04/18at 02:10; Admin Dose 0.5 MG; Start 05/30/18 at 18:30 Memantine (Namenda) 10 mg BID PO Last administered on 06/06/18 09:38; Admin Dose 10 MG; Start 05/30/18 at 21:00 Metoprolol Succinate (Toprol Xl) 12.5 mg DAILY PO Last administered on 06/06/18 09:39; Admin Dose 12.5 MG; Start 05/31/18 at 09:00 Miscellaneous Information (* Miscellaneous Pharmacy Order) 1 ea BID PO ; Start 05/30/18 at 21:00 Miscellaneous Information (* Miscellaneous Pharmacy Order) 1 ea DAILY PO ; Start 05/31/18 at 09:00 Miscellaneous Information (* Miscellaneous Pharmacy Order) 1 ea HS PO ; Start 05/30/18 at 21:00 Miscellaneous Information (* Miscellaneous Pharmacy Order) 1 ea BID PO ; Start 05/30/18 at 21:00 Ranitidine HCl (Zantac) 150 mg HS PO Last administered on 06/05/18 20:37; Admin Dose 150 MG; Start 05/30/18 at 21:00 Zolpidem Tartrate (Ambien) 5 mg HS PRN PO INSOMNIA Last administered on 06/03/18 00:02; Admin Dose 5 MG; Start 05/30/18 at 18:30 Patient Own Medication 1 ea BID PO Last administered on 06/06/18 09:39; Admin Dose 1 EA; Start 05/30/18 at 19:56 Patient Own Medication 1 ea QAM PO Last administered on 06/06/18 09:39; Admin Dose 1 EA; Start 05/30/18 at 19:56 Patient Own Medication 1 ea QPM PO Last administered on 06/05/18 20:37; Admin Dose 1 EA; Start 05/30/18 at 19:56 Patient Own Medication 1 ea BID PO Last administered on 06/06/18 09:39; Admin Dose 1 EA; Start 05/30/18 at 19:56 Ondansetron HCl (Zofran Inj) 4 mg Q6H PRN IV NAUSEA AND/OR VOMITING; Start 05/30/18 at 19:56 Miscellaneous Information (Pending Santyl Order For Wound Care) This patient ly... PRN PRN XX wound care; Start 05/30/18 at 19:56 Docusate Sodium (Colace Liquid Cup) 100 mg BID PO Last administered on 06/06/18 09:38; Admin Dose 100 MG; Start 05/31/18 at 21:00 Polyethylene Glycol (Miralax) 17 gm DAILY PO Last administered on 06/06/18 09:38; Admin Dose 17 GM; Start 06/03/18 at 09:00 Lactulose (Enulose) 20 gm DAILY PRN PO CONSTIPATION Last administered on 1/18/19at 16:49; Admin Dose 20 GM; Start 06/02/18 at 10:00 Senna (Senokot) 1 tab DAILY PO Last administered on 06/06/18at 09:38; Admin Dose 1 TAB; Start 06/03/18 at 09:00 Bisacodyl (Dulcolax Supp) 10 mg DAILY PRN [place] CONSTIPATION; Start 06/02/18 at 10:00 Assessment/Plan Additional Assessment/Plan Rehab- 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 Continue rehab activities, steady progress noted. Family reports that they would like to be closer to home at [facility]. SW working on d/c Dysphagia-continue speech Hypertension. Hyperlipidemia. Gastroesophageal reflux disease. Seizure disorder. SIA SANTOS MD Jun 06, 2018 11:58
--- NOTE | 2018-06-06 13:00 | NUR ---
Received call from Dr. Gillis to have consult with Dr. Quintana (Neurologist). Left message with Dr. Quintana office regarding the consult. Patient and made aware.
[2018-06-06 14:00] VITALS: BP 94/59; PULSE 67; RESP 18
--- NOTE | 2018-06-06 16:00 | NUR ---
Patient up in wheelchair & noted with combative behavior. Offered TV & educational materials for recreational activities but refused all offers. Alert, oriented x 1 with periods of confusion & forgetfulness. No SOB. Denies pain. No seizure episode noted. Patient & refused padded siderails. Offered 3x but refused 3x. Explained risks & benefits but they still refused. Kept clean & dry. All due meds given. Call light within reach. Chair alarm on. Kept comfortable.
--- NOTE | 2018-06-06 17:14 | PN ---
Date/Time of Note Date/Time of Note DATE: 06/06/18 TIME: 17:13 Assessment/Plan VTE Prophylaxis Risk score (from Nsg)>0 risk: 5 SCD applied (from Nsg): Yes Pharmacological prophylaxis: heparin Lines/Catheters IV Catheter Type (from Nrsg): Peripheral IV Urinary Cath still in place: No Assessment/Plan Hospital Course 67 yo male with anaplastic astrocytoma who suffered acute CVA Acute CVA -Acute left parietal cortical infarct, chronic left basal ganglia lacunar infarct -Full workup done -In rehab -Residual right upper extremity and right facial droop is the main insult, will be working with physical therapy, occupational therapy, speech therapy 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 Subjective 24 Hr Interval Summary Free Text/Dictation Continues working with PT No change to status Exam/Review of Systems Vital Signs Vitals Vital Signs Date Temp Pulse Resp B/P (MAP) Pulse Ox O2 O2 Flow FiO2 Time Delivery Rate 06/06/18 98.1 67 18 94/59 (71) 92 Room Air 14:00 Intake and Output 06/05/18 06/05/18 06/06/18 1515:00 23:00 07:00 IntakeIntake Total 50 ml 1200 ml OutputOutput Total 780 ml 750 ml BalanceBalance 50 ml 420 ml -750 ml Exam R facial droop RUE weakness RLE weakness Medications Medications Current Medications Acetaminophen (Tylenol Tab) 650 mg Q6H PRN PO MILD PAIN(1-3)OR ELEVATED TEMP; Start 05/30/18 at 18:30 Aspirin (Aspirin) 81 mg DAILY PO Last administered on 06/06/18at 09:39; Admin Dose 81 MG; Start 05/31/18 at 09:00 Atorvastatin Calcium (Lipitor) 20 mg HS PO Last administered on 06/05/18at 20:38; Admin Dose 20 MG; Start 05/30/18 at 21:00 Dexamethasone (Decadron) 2 mg DAILY PO Last administered on 06/06/18at 09:39; Admin Dose 2 MG; Start 05/31/18 at 09:00 Acetaminophen/ Hydrocodone Bitart ([place] (5/325)) 1 tab Q6H PRN PO MODERATE PAIN LEVEL 4-6; Start 05/30/18 at 18:30 Ibuprofen (Motrin) 200 mg Q6H PRN PO MILD PAIN(1-3) OR TEMP>38C; Start 05/30/18 at 18:30 Lorazepam (Ativan) 0.5 mg QID PRN PO ANXIETY Last administered on 06/04/18 02:10; Admin Dose 0.5 MG; Start 05/30/18 at 18:30 Memantine (Namenda) 10 mg BID PO Last administered on 06/06/18 09:38; Admin Dose 10 MG; Start 05/30/18 at 21:00 Metoprolol Succinate (Toprol Xl) 12.5 mg DAILY PO Last administered on 06/06/18 09:39; Admin Dose 12.5 MG; Start 05/31/18 at 09:00 Miscellaneous Information (* Miscellaneous Pharmacy Order) 1 ea BID PO ; Start 05/30/18 at 21:00 Miscellaneous Information (* Miscellaneous Pharmacy Order) 1 ea DAILY PO ; Start 05/31/18 at 09:00 Miscellaneous Information (* Miscellaneous Pharmacy Order) 1 ea HS PO ; Start 05/30/18 at 21:00 Miscellaneous Information (* Miscellaneous Pharmacy Order) 1 ea BID PO ; Start 05/30/18 at 21:00 Ranitidine HCl (Zantac) 150 mg HS PO Last administered on 06/05/18at 20:37; Admin Dose 150 MG; Start 05/30/18 at 21:00 Zolpidem Tartrate (Ambien) 5 mg HS PRN PO INSOMNIA Last administered on 06/03/18 00:02; Admin Dose 5 MG; Start 05/30/18 at 18:30 Patient Own Medication 1 ea BID PO Last administered on 06/06/18 09:39; Admin Dose 1 EA; Start 05/30/18 at 19:56 Patient Own Medication 1 ea QAM PO Last administered on 06/06/18 09:39; Admin Dose 1 EA; Start 05/30/18 at 19:56 Patient Own Medication 1 ea QPM PO Last administered on 06/05/18 20:37; Admin Dose 1 EA; Start 05/30/18 at 19:56 Patient Own Medication 1 ea BID PO Last administered on 06/06/18 09:39; Admin Dose 1 EA; Start 05/30/18 at 19:56 Ondansetron HCl (Zofran Inj) 4 mg Q6H PRN IV NAUSEA AND/OR VOMITING; Start 05/30/18 at 19:56 [facility] This patient ly... PRN PRN XX wound care; Start 05/30/18 at 19:56 Docusate Sodium (Colace Liquid Cup) 100 mg BID PO Last administered on 06/06/18 09:38; Admin Dose 100 MG; Start 05/31/18 at 21:00 Polyethylene Glycol (Miralax) 17 gm DAILY PO Last administered on 06/06/18 09:38; Admin Dose 17 GM; Start 06/03/18 at 09:00 Lactulose (Enulose) 20 gm DAILY PRN PO CONSTIPATION Last administered on 06/02/18 16:49; Admin Dose 20 GM; Start 06/02/18 at 10:00 Senna (Senokot) 1 tab DAILY PO Last administered on 06/06/18 09:38; Admin Dose 1 TAB; Start 06/03/18 at 09:00 Bisacodyl (Dulcolax Supp) 10 mg DAILY PRN [place] CONSTIPATION; Start 06/02/18 at 10:00 STEFAN BEARD MD Jun 06, 2018 17:14
--- NOTE | 2018-06-06 17:51 | CONS ---
Assessment/Plan Assessment/Plan Hospital Course 67 yo M with Hx of brain tumor NOS, s/p radiation therapy and c/b epilepsy who presents to [facility] for acute rehab... following a recent hospitalization for acute limb weakness. MRI confirmed an enhancing and diffusion restricting lesion in the R parietal lobe, concerning for stroke vs. tumor recurrence.. MRA H/N was without evidence of multifocal stenoses.. Echos were unrevealing. P: Cont ASA/Lipitor daily for secondary stroke prevention PT/OT/ST per armature balancer Recommend repeat MRI brain in ~1 mo for further characterization Will follow clinically. Consultation Date/Type/Reason Admit Date/Time May 30, 2018 at 16:24 Type of Consult Neurology Requesting Provider: RAMA LONG MD, [facility] Date/Time of Note DATE: 06/06/18 TIME: 17:51 24 HR Interval Summary Free Text/Dictation Continues [facility]. No acute events reported. Pt states that therapy is going well. Exam Vital Signs Vitals Vital Signs Date Temp Pulse Resp B/P (MAP) Pulse Ox O2 O2 Flow FiO2 Time Delivery Rate 06/06/18 98.1 67 18 94/59 (71) 92 Room Air 14:00 Intake and Output 06/05/18 06/05/18 06/06/18 1515:00 23:00 07:00 IntakeIntake Total 50 ml 1200 ml OutputOutput Total 780 ml 750 ml BalanceBalance 50 ml 420 ml -750 ml Exam E: Gen Appearance: No Apparent Distress HEENT: Normocephalic Cardiovascular: Regular rate Lungs: Clear bilaterally Abdomen: Soft Extremities: Dry NE: The patient was awake, alert, and oriented. Speech was dysarthric and dysphasic. Fund of knowledge was adequate. Pupils were equal and reactive to light. There was no afferent pupillary defect. Visual brock were normal. Funduscopic examination was limited. Extra-ocular movements were full. Ptosis was absent. There was no nystagmus. Facial sensation was diminished on the R. Face was asymmetric on the R with diminished activation on the R. Hearing was intact. Palate movements were normal. Neck strength was normal. There was normal tongue bulk and speed of movement. Tone was normal. Muscle bulk was normal. I did not see fasciculations. L arm was strong to confrontation, R arm was mildly weak. LLE was strong to confrontation and RLE was mildly weak. Vibration sensation and sensation to light touch was diminished on the R vs L. Temperature and pinprick sensation was normal. Rapid alternating movements were normal. There was no dysmetria. There was no intention tremor. No postural instability noted upon standing. Gait was unsteady, requiring a FWW and one person assist. Arm and leg reflexes were 2+ and symmetric. Cerda's sign was absent. Plantar responses were flexor. LAUREN YOUNG NP Jun 06, 2018 17:51 LEONEL ANDERSON Jun 07, 2018 05:50
[2018-06-06 19:43] VITALS: BP 109/68; PULSE 69; RESP 18
[2018-06-06] MEDS: CLOBAZAM 20 MG PO SCH (21:06)
[2018-06-06] MEDS: RANITIDINE 150 MG TAB PO SCH (21:06)
[2018-06-06] MEDS: ATORVASTATIN 20 MG TAB PO SCH (21:07)
[2018-06-07 01:46] VITALS: BP 126/65; PULSE 78; RESP 18
--- NOTE | 2018-06-07 05:37 | NUR ---
End of Shift note During the shift, pt had no complaints. oPRN medications given. Slept well. Bed on lowest position, side rails up, bed alarm on, and call light within reach. will continue to monitor
[2018-06-07 07:00] VITALS: BP 133/76; PULSE 60; RESP 18
--- NOTE | 2018-06-07 09:00 | NUR ---
Patient with episode of agitation, combative to staff and getting up in bed and in wheel chair unassisted. redirected and speak to in a calm manner offered fluids not helping. Therapist and Nurses helping to calm the patient and not effective. call patient's and son. patient is refusing to communicate with them. stay with patient for safety then came to visit patient and spoke with the patient and the patient calms down and following instruction. is very helpful to calm the patient. notified regarding the situation.
[2018-06-07] MEDS: POLYETHYLENE GLYCOL 17 GM PACKET PO SCH (09:58)
[2018-06-07] MEDS: METOPROLOL (XL) 25 MG TAB PO SCH (09:59)
[2018-06-07] MEDS: DOCUSATE SODIUM 10 MG/ML (10ML CUP) PO SCH ×2 (09:59→20:39)
[2018-06-07] MEDS: SENNA TAB PO SCH (09:59)
[2018-06-07] MEDS: BRIVIACT 100 MG PO SCH ×2 (10:01→20:36)
[2018-06-07] MEDS: MEMANTINE 10 MG TAB PO SCH ×2 (10:01→20:40)
[2018-06-07] MEDS: ASPIRIN 81 MG TAB PO SCH (10:01)
[2018-06-07] MEDS: DEXAMETHASONE 2 MG TAB PO SCH (10:01)
[2018-06-07] MEDS: CLOBAZAM 10 MG PO SCH (10:02)
[2018-06-07] MEDS: LACOSAMIDE 200 MG PO SCH ×2 (10:02→20:36)
--- NOTE | 2018-06-07 11:13 | NUR ---
SOCIAL WORK NOTE: This social welfare clerk received a call from [facility] ([phone]) following up on clinicals i faxed yesterday requesting a lateral transfer to [facility] which is close to pt home. Pt was made aware. Transportation was set up with [employer] [phone] for 06/08 at 10am, trip# [id number] [facility] ([facility]) [address], [place] [address]# [phone] To provide report
--- NOTE | 2018-06-07 12:58 | PN ---
Date/Time of Note Date/Time of Note DATE: 06/07/18 TIME: 12:56 Subjective Patient was agitated earlier this morning. He reportedly needed to have a BM. Later had results with bowel program Objective Vital Signs Date Temp Pulse Resp B/P (MAP) Pulse Ox O2 O2 Flow FiO2 Time Delivery Rate 06/07/18 98.0 60 18 133/76 95 Room Air 07:00 (95) Intake and Output 06/06/18 06/06/18 06/07/18 1515:00 23:00 07:00 IntakeIntake Total 100 ml 1300 ml OutputOutput Total 580 ml 600 ml BalanceBalance 100 ml 720 ml -600 ml Exam pulm-cta abd-soft min ambulation 75 feet Results/Medications Medications Current Medications Acetaminophen (Tylenol Tab) 650 mg Q6H PRN PO MILD PAIN(1-3)OR ELEVATED TEMP; Start 05/30/18 at 18:30 Aspirin (Aspirin) 81 mg DAILY PO Last administered on 06/07/18at 10:01; Admin Dose 81 MG; Start 05/31/18 at 09:00 Atorvastatin Calcium (Lipitor) 20 mg HS PO Last administered on 06/06/18at 21:07; Admin Dose 20 MG; Start 05/30/18 at 21:00 Dexamethasone (Decadron) 2 mg DAILY PO Last administered on 06/07/18 10:01; Admin Dose 2 MG; Start 05/31/18 at 09:00 Acetaminophen/ Hydrocodone Bitart ([place] (5/325)) 1 tab Q6H PRN PO MODERATE PAIN LEVEL 4-6; Start 05/30/18 at 18:30 Ibuprofen (Motrin) 200 mg Q6H PRN PO MILD PAIN(1-3) OR TEMP>38C; Start 05/30/18 at 18:30 Lorazepam (Ativan) 0.5 mg QID PRN PO ANXIETY Last administered on 06/04/18 02:10; Admin Dose 0.5 MG; Start 05/30/18 at 18:30 Memantine (Namenda) 10 mg BID PO Last administered on 06/07/18 10:01; Admin Dose 10 MG; Start 05/30/18 at 21:00 Metoprolol Succinate (Toprol Xl) 12.5 mg DAILY PO Last administered on 06/07/18 09:59; Admin Dose 12.5 MG; Start 05/31/18 at 09:00 Miscellaneous Information (* Miscellaneous Pharmacy Order) 1 ea BID PO ; Start 05/30/18 at 21:00 Miscellaneous Information (* Miscellaneous Pharmacy Order) 1 ea DAILY PO ; Start 05/31/18 at 09:00 Miscellaneous Information (* Miscellaneous Pharmacy Order) 1 ea HS PO ; Start 05/30/18 at 21:00 Miscellaneous Information (* Miscellaneous Pharmacy Order) 1 ea BID PO ; Start 05/30/18 at 21:00 Ranitidine HCl (Zantac) 150 mg HS PO Last administered on 06/06/18 21:06; Admin Dose 150 MG; Start 05/30/18 at 21:00 Zolpidem Tartrate (Ambien) 5 mg HS PRN PO INSOMNIA Last administered on 06/03/18at 00:02; Admin Dose 5 MG; Start 05/30/18 at 18:30 Patient Own Medication 1 ea BID PO Last administered on 06/07/18at 10:01; Admin Dose 1 EA; Start 05/30/18 at 19:56 Patient Own Medication 1 ea QAM PO Last administered on 06/07/18 10:02; Admin Dose 1 EA; Start 05/30/18 at 19:56 Patient Own Medication 1 ea QPM PO Last administered on 06/06/18at 21:06; Admin Dose 1 EA; Start 05/30/18 at 19:56 Patient Own Medication 1 ea BID PO Last administered on 06/07/18at 10:02; Admin Dose 1 EA; Start 05/30/18 at 19:56 Ondansetron HCl (Zofran Inj) 4 mg Q6H PRN IV NAUSEA AND/OR VOMITING; Start 05/30/18 at 19:56 Miscellaneous Information (Pending Santyl Order For Wound Care) This patient ly... PRN PRN XX wound care; Start 05/30/18 at 19:56 Docusate Sodium (Colace Liquid Cup) 100 mg BID PO Last administered on 06/07/18at 09:59; Admin Dose 100 MG; Start 05/31/18 at 21:00 Polyethylene Glycol (Miralax) 17 gm DAILY PO Last administered on 06/07/18 09:58; Admin Dose 17 GM; Start 06/03/18 at 09:00 Lactulose (Enulose) 20 gm DAILY PRN PO CONSTIPATION Last administered on 06/02/18at 16:49; Admin Dose 20 GM; Start 06/02/18 at 10:00 Senna (Senokot) 1 tab DAILY PO Last administered on 06/07/18at 09:59; Admin Dose 1 TAB; Start 06/03/18 at 09:00 Bisacodyl (Dulcolax Supp) 10 mg DAILY PRN IN CONSTIPATION; Start 06/02/18 at 10:00 Assessment/Plan Additional Assessment/Plan Rehab- 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 Patient has been improving with the rehabilitation program. SW working on Dc Dysphagia-continue speech Hypertension. Hyperlipidemia. Gastroesophageal reflux disease. Seizure disorder. SIA SANTOS MD Jun 07, 2018 12:58
[2018-06-07 14:00] VITALS: BP 101/63; PULSE 74; RESP 18
--- NOTE | 2018-06-07 15:51 | CONS ---
Assessment/Plan Assessment/Plan Hospital Course 67 yo M with Hx of brain tumor NOS, s/p radiation therapy and c/b epilepsy who presents to [facility] for acute rehab... following a recent hospitalization for acute limb weakness. MRI confirmed an enhancing and diffusion restricting lesion in the R parietal lobe, concerning for stroke vs. tumor recurrence.. MRA H/N was without evidence of multifocal stenoses.. Echos were unrevealing. P: Cont ASA/Lipitor daily for secondary stroke prevention PT/OT/ST per fiscal analyst Recommend repeat MRI brain in ~2 wk for further characterization Will follow clinically. Result Diagram: 06/07/18 1420 06/07/18 1420 Results 24hrs Laboratory Tests Test 06/07/18 14:20 White Blood Count 7.2 # Red Blood Count 4.40 L Hemoglobin 14.2 Hematocrit 39.8 L Mean Corpuscular Volume 90.5 Mean Corpuscular Hemoglobin 32.3 Mean Corpuscular Hemoglobin Concent 35.7 Red Cell Distribution Width 13.3 Platelet Count 149 Mean Platelet Volume 8.4 Immature Granulocytes % 1.300 H Neutrophils % 82.8 H Lymphocytes % 6.1 L Monocytes % 6.6 Eosinophils % 2.5 Basophils % 0.7 Nucleated Red Blood Cells % 0.0 Immature Granulocytes # 0.090 H Neutrophils # 5.9 Lymphocytes # 0.4 L Monocytes # 0.5 Eosinophils # 0.2 Basophils # 0.1 Nucleated Red Blood Cells # 0.0 Sodium Level 139 Potassium Level 4.0 Chloride Level 101 Carbon Dioxide Level 30 Anion Gap 8 Blood Urea Nitrogen 18 Creatinine 0.92 Est Glomerular Filtrat Rate mL/min > 60 Glucose Level 149 Calcium Level 9.4 Consultation Date/Type/Reason Admit Date/Time May 30, 2018 at 16:24 Type of Consult Neurology Requesting Provider: RAMA LONG MD, [facility] Date/Time of Note DATE: 06/07/18 TIME: 15:46 24 HR Interval Summary Free Text/Dictation Continues [facility]. Reportedly agitated this am as the pt wanted to walk on his own. Pt currently states he's feeling better and is without complaints. Awaiting discharge tomorrow. Exam Vital Signs Vitals Vital Signs Date Temp Pulse Resp B/P (MAP) Pulse Ox O2 O2 Flow FiO2 Time Delivery Rate 06/07/18 97.5 74 18 101/63 96 Room Air 14:00 (76) Intake and Output 06/06/18 06/06/18 06/07/18 1515:00 23:00 07:00 IntakeIntake Total 100 ml 1300 ml OutputOutput Total 580 ml 600 ml BalanceBalance 100 ml 720 ml -600 ml Exam PE: Gen Appearance: No Apparent Distress HEENT: Normocephalic Cardiovascular: Regular rate Lungs: Clear bilaterally Abdomen: Soft Extremities: Dry NE: The patient was awake, alert, and oriented. Speech was slightly dysarthric and dysphasic. Fund of knowledge was adequate. Pupils were equal and reactive to light. There was no afferent pupillary defect. Visual brock were normal. Funduscopic examination was limited. Extra-ocular movements were full. Ptosis was absent. There was no nystagmus. Facial sensation was diminished on the R. Face was asymmetric on the R with diminished activation on the R, though improved. Hearing was intact. Palate movements were normal. Neck strength was normal. There was normal tongue bulk and speed of movement. Tone was normal. Muscle bulk was normal. I did not see fasciculations. L arm was strong to confrontation, R arm was mildly weak. LLE was strong to confrontation and RLE was mildly weak. Vibration sensation and sensation to light touch was diminished on the R vs L. Temperature and pinprick sensation was normal. Rapid alternating movements were normal. There was no dysmetria. There was no intention tremor. No postural instability noted upon standing. Gait was unsteady, requiring a FWW and one person assist. Arm and leg reflexes were 2+ and symmetric. Cerda's sign was absent. Plantar responses were flexor. LAUREN YUONG NP Jun 07, 2018 15:51
--- NOTE | 2018-06-07 18:59 | NUR ---
present during treatment. Pt initially agitated, called son, Jonas which calmed patient for short time. Pt was able to participate shortly before becoming agitated again. Further treatment was discontinued as it would not be therapeutic.
--- NOTE | 2018-06-07 19:01 | NUR ---
Patient is combative and refusing everything and trying to get up unassisted. speak to in a calm manner. redirected not effective. stay with the patient for safety until he calms down. at bedside and trying to talk to the patient and very supportive.
--- NOTE | 2018-06-07 19:25 | PN ---
DATE: 06/07/2018 PSYCHOLOGY - INDIVIDUAL SESSION - [id number] This is a followup on a patient who was seen last week. The patient was seen up in bed. The patient was functioning slightly better. The patient is very frustrated about what is going on with him checo hannon. The patient's was present with the patient's permission. The patient is making improve ments but it is slow and he is very frustrated about how slow it is. The patient has refused to func tion at a higher level and is fearful that he will never be able to return to his previous level of f unctioning. This might be realistic. I worked with the patient to try to continue to encourage him to work on his emotional issues surrounding all his medical problems. The patient was receptive to t his and did engage the therapist. Dictated By: DASHAWN RICHARDSON PHD RK/FROY Conf#: [id number] DID#: [id number] CC: RAMA LONG MD; SIA SINHA MD; LEONEL ANDERSON;*End*
[2018-06-07 19:32] VITALS: BP 124/77; PULSE 76; RESP 18
--- NOTE | 2018-06-07 19:50 | PN ---
Date/Time of Note Date/Time of Note DATE: 06/07/18 TIME: 19:50 Assessment/Plan VTE Prophylaxis Risk score (from Nsg)>0 risk: 3 SCD applied (from Nsg): Yes Pharmacological prophylaxis: heparin Lines/Catheters IV Catheter Type (from Nrsg): Peripheral IV Urinary Cath still in place: No Assessment/Plan Hospital Course 67 yo male with anaplastic astrocytoma who suffered acute CVA Acute CVA -Acute left parietal cortical infarct, chronic left basal ganglia lacunar infarct -Full workup done -In rehab -Residual right upper extremity and right facial droop is the main insult, will be working with physical therapy, occupational therapy, speech therapy Anaplastic astrocytoma - Decadron 2 mg -On chemotherapy -Follow-up at [facility] -Follow-up with neuro oncologist after rehab Hypertension -Manage as needed asymptomatic Seizures -Continue home meds Dyslipidemia -Continue meds History of dementia -Continue home meds GERD -Continue home meds New finding of small PFO on LAKSHMI -Need surgical repair, family and knows to follow-up at [facility] after discharge. Result Diagram: 06/07/18 1420 06/07/18 1420 Results 24hrs Laboratory Tests Test 06/07/18 14:20 White Blood Count 7.2 # Red Blood Count 4.40 L Hemoglobin 14.2 Hematocrit 39.8 L Mean Corpuscular Volume 90.5 Mean Corpuscular Hemoglobin 32.3 Mean Corpuscular Hemoglobin Concent 35.7 Red Cell Distribution Width 13.3 Platelet Count 149 Mean Platelet Volume 8.4 Immature Granulocytes % 1.300 H Neutrophils % 82.8 H Lymphocytes % 6.1 L Monocytes % 6.6 Eosinophils % 2.5 Basophils % 0.7 Nucleated Red Blood Cells % 0.0 Immature Granulocytes # 0.090 H Neutrophils # 5.9 Lymphocytes # 0.4 L Monocytes # 0.5 Eosinophils # 0.2 Basophils # 0.1 Nucleated Red Blood Cells # 0.0 Sodium Level 139 Potassium Level 4.0 Chloride Level 101 Carbon Dioxide Level 30 Anion Gap 8 Blood Urea Nitrogen 18 Creatinine 0.92 Est Glomerular Filtrat Rate mL/min > 60 Glucose Level 149 Calcium Level 9.4 Exam/Review of Systems Vital Signs Vitals Vital Signs Date Temp Pulse Resp B/P (MAP) Pulse Ox O2 O2 Flow FiO2 Time Delivery Rate 06/07/18 97.4 76 18 124/77 91 Room Air 19:32 (93) Intake and Output 06/06/18 06/06/18 06/07/18 1515:00 23:00 07:00 IntakeIntake Total 100 ml 1300 ml OutputOutput Total 580 ml 600 ml BalanceBalance 100 ml 720 ml -600 ml Medications Medications Current Medications Acetaminophen (Tylenol Tab) 650 mg Q6H PRN PO MILD PAIN(1-3)OR ELEVATED TEMP; Start 05/30/18 at 18:30 Aspirin (Aspirin) 81 mg DAILY PO Last administered on 06/07/18at 10:01; Admin Dose 81 MG; Start 05/31/18 at 09:00 Atorvastatin Calcium (Lipitor) 20 mg HS PO Last administered on 06/06/18at 21:07; Admin Dose 20 MG; Start 05/30/18 at 21:00 Dexamethasone (Decadron) 2 mg DAILY PO Last administered on 06/07/18at 10:01; Admin Dose 2 MG; Start 05/31/18 at 09:00 Acetaminophen/ Hydrocodone Bitart ([place] (5/325)) 1 tab Q6H PRN PO MODERATE PAIN LEVEL 4-6; Start 05/30/18 at 18:30 Ibuprofen (Motrin) 200 mg Q6H PRN PO MILD PAIN(1-3) OR TEMP>38C; Start 05/30/18 at 18:30 Lorazepam (Ativan) 0.5 mg QID PRN PO ANXIETY Last administered on 06/04/18at 02:10; Admin Dose 0.5 MG; Start 05/30/18 at 18:30 Memantine (Namenda) 10 mg BID PO Last administered on 06/07/18at 10:01; Admin Dose 10 MG; Start 05/30/18 at 21:00 Metoprolol Succinate (Toprol Xl) 12.5 mg DAILY PO Last administered on 06/07/18at 09:59; Admin Dose 12.5 MG; Start 05/31/18 at 09:00 Miscellaneous Information (* Miscellaneous Pharmacy Order) 1 ea BID PO ; Start 05/30/18 at 21:00 Miscellaneous Information (* Miscellaneous Pharmacy Order) 1 ea DAILY PO ; Start 05/31/18 at 09:00 Miscellaneous Information (* Miscellaneous Pharmacy Order) 1 ea HS PO ; Start 05/30/18 at 21:00 Miscellaneous Information (* Miscellaneous Pharmacy Order) 1 ea BID PO ; Start 05/30/18 at 21:00 Ranitidine HCl (Zantac) 150 mg HS PO Last administered on 06/06/18 21:06; Admin Dose 150 MG; Start 05/30/18 at 21:00 Zolpidem Tartrate (Ambien) 5 mg HS PRN PO INSOMNIA Last administered on 06/03/18 00:02; Admin Dose 5 MG; Start 05/30/18 at 18:30 Patient Own Medication 1 ea BID PO Last administered on 06/07/18 10:01; Admin Dose 1 EA; Start 05/30/18 at 19:56 Patient Own Medication 1 ea QAM PO Last administered on 06/07/18 10:02; Admin Dose 1 EA; Start 05/30/18 at 19:56 Patient Own Medication 1 ea QPM PO Last administered on 06/06/18 21:06; Admin Dose 1 EA; Start 05/30/18 at 19:56 Patient Own Medication 1 ea BID PO Last administered on 06/07/18 10:02; Admin Dose 1 EA; Start 05/30/18 at 19:56 Ondansetron HCl (Zofran Inj) 4 mg Q6H PRN IV NAUSEA AND/OR VOMITING; Start 05/30/18 at 19:56 Miscellaneous Information (Pending Santyl Order For Wound Care) This patient ly... PRN PRN XX wound care; Start 05/30/18 at 19:56 Docusate Sodium (Colace Liquid Cup) 100 mg BID PO Last administered on 06/07/18 09:59; Admin Dose 100 MG; Start 05/31/18 at 21:00 Polyethylene Glycol (Miralax) 17 gm DAILY PO Last administered on 06/07/18 09:58; Admin Dose 17 GM; Start 06/03/18 at 09:00 Lactulose (Enulose) 20 gm DAILY PRN PO CONSTIPATION Last administered on 06/02 16:49; Admin Dose 20 GM; Start 06/02/18 at 10:00 Senna (Senokot) 1 tab DAILY PO Last administered on 06/07/18 09:59; Admin Dose 1 TAB; Start 06/03/18 at 09:00 Bisacodyl (Dulcolax Supp) 10 mg DAILY PRN [place] CONSTIPATION; Start 06/02/18 at 10:00 STEFAN BEARD MD Jun 07, 2018 19:50
--- NOTE | 2018-06-07 20:00 | NUR ---
PT IS VERY AGITATED AND COMBATIVE, TRYING TO GET UP FROM WHEELCHAIR. OFFERED PT TO HAVE A WALK OR TO WHEEL PT AROUND HALLWAY BUT PT REFUSED. TALKED TO PT IN CALM MANNER. FREQUENT REDIRECTION GIVEN. FALL PRECAUTION. CHAIR ALARM ON. PT REFUSED LAP LUIS TO BE PLACED ON. IS AT BEDSIDE. DR COVINGTON NOTIFIED. CLOSE MONITORING.
[2018-06-07] MEDS: CLOBAZAM 20 MG PO SCH (20:36)
[2018-06-07] MEDS: RANITIDINE 150 MG TAB PO SCH (20:39)
[2018-06-07] MEDS: ATORVASTATIN 20 MG TAB PO SCH (20:40)
--- NOTE | 2018-06-07 22:00 | NUR ---
PT IS CALM AND COOPERATIVE, FOLLOW DIRECTIONS TO GET BACK TO BED TAKES ALL HIS DUE MEDS. BUT STILL REFUSED TO EAT HIS DINNER. CONTINUE TO MONITOR. BED ALARM ON. CALL LIGHT AND TABLE ARE WITHIN REACH.
[2018-06-08 02:15] VITALS: BP 124/64; PULSE 64; RESP 18
--- NOTE | 2018-06-08 06:31 | NUR ---
PT SLEPT ON OFF DURING THE NIGHT. PT WAS CALM AND COOPERATIVE, FOLLOW COMMANDS. HE IS INC, KEPT DRY AND CLEAN. TURN AND REPOSITION Q 2 HOURS. HOURLY ROUNDING MADE. FREQUENT REINFORCEMENT GIVEN BOUT SAFETY.
[2018-06-08 07:30] VITALS: BP 124/73; PULSE 64; RESP 18
[2018-06-08] MEDS: BRIVIACT 100 MG PO SCH (09:44)
[2018-06-08] MEDS: POLYETHYLENE GLYCOL 17 GM PACKET PO SCH (09:44)
[2018-06-08] MEDS: LACOSAMIDE 200 MG PO SCH (09:44)
[2018-06-08] MEDS: CLOBAZAM 10 MG PO SCH (09:44)
[2018-06-08] MEDS: DOCUSATE SODIUM 10 MG/ML (10ML CUP) PO SCH (09:45)
[2018-06-08] MEDS: ASPIRIN 81 MG TAB PO SCH (09:45)
[2018-06-08] MEDS: SENNA TAB PO SCH (09:45)
[2018-06-08] MEDS: MEMANTINE 10 MG TAB PO SCH (09:46)
[2018-06-08] MEDS: DEXAMETHASONE 2 MG TAB PO SCH (09:46)
[2018-06-08] MEDS: METOPROLOL (XL) 25 MG TAB PO SCH (09:48)
--- NOTE | 2018-06-08 11:38 | CONS ---
Date/Time of Note Date/Time of Note DATE: 06/08/18 TIME: 11:33 Consult Date/Type/Reason Admit Date/Time May 30, 2018 at 16:24 Initial Consult Date Type of Consultation: IM Requesting Provider: RAMA LONG MD, [facility] Subjective Remains comfortable, at bedside. Objective Vital Signs Date Temp Pulse Resp B/P (MAP) Pulse Ox O2 O2 Flow FiO2 Time Delivery Rate 06/08/18 97.5 64 18 124/73 95 Room Air 07:30 (90) Intake and Output 06/07/18 06/07/18 06/08/18 1414:59 22:59 06:59 IntakeIntake Total 1700 ml 200 ml OutputOutput Total 800 ml BalanceBalance 900 ml 200 ml Exam Elderly gentleman with hemiplegia at bedside GENERAL: VITAL SIGNS: per chart NECK: Supple. No JVD or lymphadenopathy. CARDIAC EXAM: S1, S2. No added sounds or murmurs. CHEST: clear bilaterally, No added sounds, rales or wheezes ABDOMEN: Soft, nontender. No guarding or rebound. EXTREMITIES: No cyanosis, clubbing or edema. NEUROLOGIC: Generalized weakness. Hemiplegia Results/Medications Result Diagram: 06/07/18 1420 06/07/18 1420 Results 24 hrs Laboratory Tests Test 06/07/18 14:20 White Blood Count 7.2 # Red Blood Count 4.40 L Hemoglobin 14.2 Hematocrit 39.8 L Mean Corpuscular Volume 90.5 Mean Corpuscular Hemoglobin 32.3 Mean Corpuscular Hemoglobin Concent 35.7 Red Cell Distribution Width 13.3 Platelet Count 149 Mean Platelet Volume 8.4 Immature Granulocytes % 1.300 H Neutrophils % 82.8 H Lymphocytes % 6.1 L Monocytes % 6.6 Eosinophils % 2.5 Basophils % 0.7 Nucleated Red Blood Cells % 0.0 Immature Granulocytes # 0.090 H Neutrophils # 5.9 Lymphocytes # 0.4 L Monocytes # 0.5 Eosinophils # 0.2 Basophils # 0.1 Nucleated Red Blood Cells # 0.0 Sodium Level 139 Potassium Level 4.0 Chloride Level 101 Carbon Dioxide Level 30 Anion Gap 8 Blood Urea Nitrogen 18 Creatinine 0.92 Est Glomerular Filtrat Rate mL/min > 60 Glucose Level 149 Calcium Level 9.4 Medications Current Medications Acetaminophen (Tylenol Tab) 650 mg Q6H PRN PO MILD PAIN(1-3)OR ELEVATED TEMP; Start 05/30/18 at 18:30 Aspirin (Aspirin) 81 mg DAILY PO Last administered on 06/08/18 09:45; Admin Dose 81 MG; Start 05/31/18 at 09:00 Atorvastatin Calcium (Lipitor) 20 mg HS PO Last administered on 06/07/18at 20:40; Admin Dose 20 MG; Start 05/30/18 at 21:00 Dexamethasone (Decadron) 2 mg DAILY PO Last administered on 06/08/18 09:46; Admin Dose 2 MG; Start 05/31/18 at 09:00 Acetaminophen/ Hydrocodone Bitart ([place] (5/325)) 1 tab Q6H PRN PO MODERATE PAIN LEVEL 4-6; Start 05/30/18 at 18:30 Ibuprofen (Motrin) 200 mg Q6H PRN PO MILD PAIN(1-3) OR TEMP>38C; Start 05/30/18 at 18:30 Lorazepam (Ativan) 0.5 mg QID PRN PO ANXIETY Last administered on 06/04/18at 02:10; Admin Dose 0.5 MG; Start 05/30/18 at 18:30 Memantine (Namenda) 10 mg BID PO Last administered on 06/08/18 09:46; Admin Dose 10 MG; Start 05/30/18 at 21:00 Metoprolol Succinate (Toprol Xl) 12.5 mg DAILY PO Last administered on 06/08/18 09:48; Admin Dose 12.5 MG; Start 05/31/18 at 09:00 Miscellaneous Information (* Miscellaneous Pharmacy Order) 1 ea BID PO ; Start 05/30/18 at 21:00 Miscellaneous Information (* Miscellaneous Pharmacy Order) 1 ea DAILY PO ; Start 05/31/18 at 09:00 Miscellaneous Information (* Miscellaneous Pharmacy Order) 1 ea HS PO ; Start 05/30/18 at 21:00 Miscellaneous Information (* Miscellaneous Pharmacy Order) 1 ea BID PO ; Start 05/30/18 at 21:00 Ranitidine HCl (Zantac) 150 mg HS PO Last administered on 06/07/18at 20:39; Admin Dose 150 MG; Start 05/30/18 at 21:00 Zolpidem Tartrate (Ambien) 5 mg HS PRN PO INSOMNIA Last administered on 06/03 00:02; Admin Dose 5 MG; Start 05/30/18 at 18:30 Patient Own Medication 1 ea BID PO Last administered on 06/08/18 09:44; Admin Dose 1 EA; Start 05/30/18 at 19:56 Patient Own Medication 1 ea QAM PO Last administered on 06/08/18 09:44; Admin Dose 1 EA; Start 05/30/18 at 19:56 Patient Own Medication 1 ea QPM PO Last administered on 06/07/18 20:36; Admin Dose 1 EA; Start 05/30/18 at 19:56 Patient Own Medication 1 ea BID PO Last administered on 06/08/18 09:44; Admin Dose 1 EA; Start 05/30/18 at 19:56 Ondansetron HCl (Zofran Inj) 4 mg Q6H PRN IV NAUSEA AND/OR VOMITING; Start 05/30/18 at 19:56 Miscellaneous Information (Pending [facility] Order For Wound Care) This patient ly... PRN PRN XX wound care; Start 05/30/18 at 19:56 Docusate Sodium (Colace Liquid Cup) 100 mg BID PO Last administered on 06/08/18 09:45; Admin Dose 100 MG; Start 05/31/18 at 21:00 Polyethylene Glycol (Miralax) 17 gm DAILY PO Last administered on 06/08/18 09:44; Admin Dose 17 GM; Start 06/03/18 at 09:00 Lactulose (Enulose) 20 gm DAILY PRN PO CONSTIPATION Last administered on 06/02/18 16:49; Admin Dose 20 GM; Start 06/02/18 at 10:00 Senna (Senokot) 1 tab DAILY PO Last administered on 06/08/18 09:45; Admin Dose 1 TAB; Start 06/03/18 at 09:00 Bisacodyl (Dulcolax Supp) [address] CONSTIPATION; Start 06/02/18 at 10:00 Assessment/Plan Chief Complaint/Hosp Course Assessment and Plan. Acute CVA -Acute left parietal cortical infarct, chronic left basal ganglia lacunar infarct -Full workup done -In rehab -Hemiplegia. Anaplastic astrocytoma - Decadron 2 mg -On chemotherapy -Follow-up at [facility] -Follow-up with neuro oncologist after rehab Hypertension -Manage as needed Seizures -Continue home meds Dyslipidemia -Continue meds History of dementia -Continue home meds GERD -Continue home meds New finding of small PFO on LAKSHMI -Need surgical repair, family and knows to follow-up at [facility] after discharge. Transfer to [facility] [place] RAMA LONG MD, [facility] Jun 08, 2018 11:38
--- NOTE | 2018-06-08 12:03 | DS ---
Date/Time of Note Date/Time of Note DATE: 06/08/18 TIME: 12:01 Discharge Summary Admission/Discharge Info Admit Date/Time May 30, 2018 at 16:24 Discharge Date/Time Discharge Diagnosis 1. 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 2. History of brain tumor with anaplastic astrocytoma. 3. Hypertension. 4. Hyperlipidemia. 5. Gastroesophageal reflux disease. 6. Seizure disorder. 7. PFO 8. Impairments in self-care, mobility and cognition, dysphagia Patient Condition: Good Hospital Course The patient was admitted for comprehensive interdisciplinary rehabilitation and made steady functional gains from a Max level to a Min level for self care tasks and mobility including ambulating over 75 feet with the use of a FWW. Patient's family lies quite a distance from the hospital and is requesting a transfer to a rehabilitation unit that is closer to home. Home Meds Active Scripts Docusate Sodium (Dok) 100 Mg Capsule, 100 MG PO Q12, #60 CAP Prov:MINAL KAISERDulce . 05/30/18 Lorazepam* (Lorazepam*) 1 Mg Tablet, 0.5 MG PO Q6 PRN for ANXIETY, #30 TAB Prov:MARIEL KAISER . 05/30/18 Reported Medications Ranitidine Hcl* (Ranitidine Hcl*) 150 Mg Tablet, 150 MG PO HS, #30 TAB 05/25/18 Polyethylene Glycol* (Miralax*) 17 Gm Powd.pack, 17 GM PO DAILY PRN for CONSTIP ATION, #30 PACKET 05/25/18 Metoprolol Succinate* (Toprol XL*) 25 Mg Tab.sr.24h, 12.5 MG PO DAILY, #30 TAB 05/25/18 Memantine* (Namenda*) 10 Mg Tablet, 10 MG PO BID, #60 TAB 05/25/18 Lacosamide (Vimpat) 200 Mg Tablet, 200 MG PO BID, TAB 05/25/18 Hydrocodone/Acetaminophen ([place] 5-325 Tablet) 1 Each Tablet, 1 EACH PO DAILY PRN for SEVERE PAIN LEVEL 7-10, TAB 05/25/18 Dexamethasone* (Dexamethasone*) 2 Mg Tablet, 2 MG PO DAILY, TAB 05/25/18 Clobazam (Onfi) 20 Mg Tablet, 20 MG PO QPM, TAB 05/25/18 Clobazam (Onfi) 10 Mg Tablet, 10 MG PO QAM, TAB 05/25/18 Brivaracetam (Briviact) 100 Mg Tablet, 100 MG PO BID, TAB 05/25/18 Atorvastatin Calcium* (Atorvastatin Calcium*) 20 Mg Tablet, 20 MG PO QHS, #30 TAB 05/25/18 Ibuprofen* (Advil*) 200 Mg Capsule, 200 MG PO Q6H PRN for PAIN, CAP 05/25/18 Primary Care Provider Care Physician No Primary Pending Labs Laboratory Tests Test 06/07/18 14:20 White Blood Count 7.2 10^3/ul (4.8-10.8) Red Blood Count 4.40 10^6/ul (4.70-6.10) Hemoglobin 14.2 g/dl (14.0-18.0) Hematocrit 39.8 % (42.0-52.0) Mean Corpuscular Volume 90.5 fl (82.0-101.0) Mean Corpuscular Hemoglobin 32.3 pg (29.0-33.0) Mean Corpuscular Hemoglobin Concent 35.7 g/dl (32.0-37.0) Red Cell Distribution Width 13.3 % (11.5-14.5) Platelet Count 149 10^3/UL (140-415) Mean Platelet Volume 8.4 fl (7.4-10.4) Immature Granulocytes % 1.300 % (0.001-0.429) Neutrophils % 82.8 % (39.0-77.0) Lymphocytes % 6.1 % (15.0-51.0) Monocytes % 6.6 % (0.0-11.0) Eosinophils % 2.5 % (0.0-7.0) Basophils % 0.7 % (0.0-2.0) Nucleated Red Blood Cells % 0.0 /100WBC (0.0-0.0) Immature Granulocytes # 0.090 10^3/ul (0.0-0.031) Neutrophils # 5.9 10^3/ul (1.6-7.5) Lymphocytes # 0.4 10^3/ul (0.8-2.9) Monocytes # 0.5 10^3/ul (0.3-0.9) Eosinophils # 0.2 10^3/ul (0.0-0.5) Basophils # 0.1 10^3/ul (0.0-0.1) Nucleated Red Blood Cells # 0.0 10^3/ul (0.0-0.0) Sodium Level 139 mmol/L (135-144) Potassium Level 4.0 mmol/L (3.5-5.1) Chloride Level 101 mmol/L (97-110) Carbon Dioxide Level 30 mmol/L (21-31) Anion Gap 8 (5-13) Blood Urea Nitrogen 18 mg/dl (7-20) Creatinine 0.92 mg/dl (0.61-1.24) Est Glomerular Filtrat Rate mL/min > 60 mL/min (>60) Glucose Level 149 mg/dl (70-220) Calcium Level 9.4 mg/dl (8.4-10.2) SIA SINHA MD Jun 08, 2018 12:03
--- NOTE | 2018-06-08 14:01 | NUR ---
Patient discharged to [facility] ARU via ambulance in a gurney accompanied by 2 estate administrator & patient's . Discharge medication reviewed with Dr Sanders & Dr Gillis with no new order or changes at this time. Patient will continue same medication in [facility] ARU. Alert, oriented x 2 with periods of confusion & forgetfulness. No SOB. Denies pain. All medication instructions were reported to Magalys & patient's . All questions answered & clarified. Body assessment done with no new skin breakdown. Inventory list done & all belongings are complete. Kept clean & dry. All due meds given. Kept comfortable.
--- NOTE | 2018-06-08 14:12 | CONS ---
Assessment/Plan Assessment/Plan Hospital Course 67 yo M with Hx of brain tumor NOS, s/p radiation therapy and c/b epilepsy who presents to [facility] for acute rehab... following a recent hospitalization for acute limb weakness. MRI confirmed an enhancing and diffusion restricting lesion in the R parietal lobe, concerning for stroke vs. tumor recurrence.. MRA H/N was without evidence of multifocal stenoses.. Echos were unrevealing. P: Cont ASA/Lipitor daily for secondary stroke prevention PT/OT/ST per credit product analyst Recommend repeat MRI brain in ~2 wk for further characterization Will follow clinically. Result Diagram: 06/07/18 1420 06/07/18 1420 Results 24hrs Laboratory Tests Test 06/07/18 14:20 White Blood Count 7.2 # Red Blood Count 4.40 L Hemoglobin 14.2 Hematocrit 39.8 L Mean Corpuscular Volume 90.5 Mean Corpuscular Hemoglobin 32.3 Mean Corpuscular Hemoglobin Concent 35.7 Red Cell Distribution Width 13.3 Platelet Count 149 Mean Platelet Volume 8.4 Immature Granulocytes % 1.300 H Neutrophils % 82.8 H Lymphocytes % 6.1 L Monocytes % 6.6 Eosinophils % 2.5 Basophils % 0.7 Nucleated Red Blood Cells % 0.0 Immature Granulocytes # 0.090 H Neutrophils # 5.9 Lymphocytes # 0.4 L Monocytes # 0.5 Eosinophils # 0.2 Basophils # 0.1 Nucleated Red Blood Cells # 0.0 Sodium Level 139 Potassium Level 4.0 Chloride Level 101 Carbon Dioxide Level 30 Anion Gap 8 Blood Urea Nitrogen 18 Creatinine 0.92 Est Glomerular Filtrat Rate mL/min > 60 Glucose Level 149 Calcium Level 9.4 Consultation Date/Type/Reason Admit Date/Time May 30, 2018 at 13:24 Type of Consult Neurology Requesting Provider: RAMA LONG MD, [facility] Date/Time of Note DATE: 06/08/18 TIME: 14:12 24 HR Interval Summary Free Text/Dictation Continues [facility]. No acute events reported. Awaiting discharge today. Exam Vital Signs Vitals Vital Signs Date Temp Pulse Resp B/P (MAP) Pulse Ox O2 O2 Flow FiO2 Time Delivery Rate 06/08/18 97.5 64 18 124/73 95 Room Air 07:30 (90) Intake and Output 06/07/18 06/07/18 06/08/18 1414:59 22:59 06:59 IntakeIntake Total 1700 ml 200 ml OutputOutput Total 800 ml BalanceBalance 900 ml 200 ml Exam PE: Gen Appearance: No Apparent Distress HEENT: Normocephalic Cardiovascular: Regular rate Lungs: Clear bilaterally Abdomen: Soft Extremities: Dry NE: The patient was awake, alert, and oriented. Speech was slightly dysarthric and dysphasic. Fund of knowledge was adequate. Pupils were equal and reactive to light. There was no afferent pupillary defect. Visual brock were normal. Funduscopic examination was limited. Extra-ocular movements were full. Ptosis was absent. There was no nystagmus. Facial sensation was diminished on the R. Face was asymmetric on the R with diminished activation on the R, though improved. Hearing was intact. Palate movements were normal. Neck strength was normal. There was normal tongue bulk and speed of movement. Tone was normal. Muscle bulk was normal. I did not see fasciculations. L arm was strong to confrontation, R arm was mildly weak. LLE was strong to confrontation and RLE was mildly weak. Vibration sensation and sensation to light touch was diminished on the R vs L. Temperature and pinprick sensation was normal. Rapid alternating movements were normal. There was no dysmetria. There was no intention tremor. No postural instability noted upon standing. Gait was unstead y, requiring a FWW and one person assist. Arm and leg reflexes were 2+ and symmetric. Cerda's sign was absent. Plantar responses were flexor. LAUREN YOUNG NP Jun 08, 2018 14:12 LEONEL ANDERSON Jun 09, 2018 05:55
--- NOTE | 2018-06-08 14:13 | NUR ---
[facility] medical lab scientist Summary Date of Discharge: 06/08/18 Patient Name: NCIK NEWTON MR#: [id number] Height: 5 ft 9 in Weight: 182 lbs 5.157 oz 82.700 kg Reason for Visit: STROKE Precautions: Date: 06/08/18 Time: 1413 User: JOEL BURR Patient's progress, Adm-->DC: met Short-term Goals: 1. Improved ADLs 2. No falls/injury during stay 3. No new skin breakdown 4. 5. Short-term goals not met and reason/barriers: Achievement of Long-term Goals: met Long-term Goals not met and reason/barriers: Bladder - level of function and accidents: 4 Bowel - level of function and accidents: 4 Skin: no new skin breakdown Status: Treatment: Changes: Pain: 0/10 Level: Location: Management: Changes: Functional levels:max assist Self Care: max Transfers: 4 Locomotion: 4 Assistance requirements:max Communication: max Social Cognition: max Safety awareness: forgets limitations Interdisciplinary interactions: RN/PT/OT/ST Patient education: fall, aspiration, seizure precautions Discharge needs: met Comorbid conditions: CVA
--- NOTE | 2018-06-15 11:15 | NUR ---
[facility] PT Discharge Summary Date of Discharge: 06/08/18 Patient Name: NICK NEWTON MR#: [id number] Height: 5 ft 9 in Weight: 182 lbs 5.157 oz 82.700 kg Reason for Visit: STROKE Precautions: aphasic, speak slow and loud, fall risk, R-sided weakness with Rt side neglect, 2PA for gait, hx seizures Date: 06/08/18 Time: 1115 User: QUIN ALEJANDRO Patient's progress, Adm-->DC: Short-term Goals: SBA bed mobility CGA with transfers Min A gait with least restrictive device x 75 ft SBA w/c mobility x 75 ft Pt made conservative gains during his stay at [facility]. At the time of eval, pt demonstrated mod A for bed mobility, mod/max A for transfers, Mod A for WC 25ft, Mod A for gait 30ft no device. Pt required 2PA for safety/steadying. At the time of dc, pt was mod assist for bed mobility, min A for transfers, mod A for WC mobility 25ft, min A for gait using FWW with Rt FA trough 75ftx2. Pt did require 2PA for WC follow/safety during gait. Barriers: short stay, Rt-side neglect with Rt hemiparesis, aphasic, dec retention, forgetfulness. Pt owned manual WC, FWW, 4WW, trekking pole. Per pt/spouse request, transfer to ARU closer to their home. Pt dc'd to [facility].
--- NOTE | 2018-06-29 15:46 | NUR ---
[facility] OT Discharge Summary Date of Discharge: 06/08/18 Patient Name: NICK NEWTON MR#: [id number] Height:5 ft 9 in Weight:182 lbs 5.157 oz 82.700 kg Reason for Visit: STROKE Precautions: Date: 06/29/18 Time: 1546 User: STEFANY VARGAS Short-term Goals: 1. Sup w/ Feeding 2. Sup w/ Grooming 3. Mod A w/ Bathing 4. Sup/ Min A w/ UB/LB dress 5. Min A w/ Toileting 6. Min A w/ Functional transfers - PT met some of OT goals. Upon admission pt functional levels were: Feeding: Mod, Groming: Mod, bathing: Dep, UB/LB dress: Mod/ TD, Toielting: TD, Func trans: TD. Pt made steady progress towards goals through ADL retraining, NMRE, thera ex and actv, pt and cg education. Pt's fucntional levels upon d/c were: Feeding: Sup, Grooming: Mod A, Bathing: Dep, UB/LB dress: Min A/ TD, Toileting : TD, func Trans: TD. Barriers include: poor carryover of learning, poor sequencing, episodes of increased confusion resulting to missed treatments. Pt d/lucy to ARU in [facility].
== END 2018-06-08 14:00 | DRG 57 ==
LOC: VRC 16:24
PROVIDERS: ADMIT Physical Medicine & Rehabilitation; ATTEND Internal Medicine Pulmonary Disease
DX: I69.351 Hemiplegia and hemiparesis following cerebral infarction affecting right dominant side (principal); Q21.1 Atrial septal defect; C71.9 Malignant neoplasm of brain, unspecified; R47.01 Aphasia; R13.10 Dysphagia, unspecified; I69.991 Dysphagia following unspecified cerebrovascular disease; K21.9 Gastro-esophageal reflux disease without esophagitis; G40.909 Epilepsy, unspecified, not intractable, without status epilepticus; I10 Essential (primary) hypertension; E78.5 Hyperlipidemia, unspecified; F41.9 Anxiety disorder, unspecified; Z72.0 Tobacco use; F06.31 Mood disorder due to known physiological condition with depressive features; F01.50 Vascular dementia, unspecified severity, without behavioral disturbance, psychotic disturbance, mood disturbance, and anxiety
CPT/HCPCS: 80048; 80053; 81001; 85025; 87081; 87086; 92507; 92610; 97110; 97112; 97116; 97163; 97167; 97530; 97535; 97542